=== PATIENT | male | born 1975 | race Caucasian/White ===

== ENCOUNTER 2018-03-15 15:15 | Outpatient (RCR) | payer OTHER, SELFPAY ==
--- NOTE | 2018-02-15 17:55 | PT.OPPOC ---
Current Diagnoses Pain in right shoulder (03/15/18) Provider Visit Care Team Role Provider Type Jihan Beasley DO Attending Provider Physician Primary Care Provider Specialty: [facility] Address: [address] [place] [address], [id number] Email: [email or web address] Plan Of Care PT-OP-T Assessment and Plan Start: 02/15/18 17:14 Freq: Status: Active Protocol: Document 02/15/18 15:15 HH (Rec: 02/15/18 17:54 HH [email or web address]) Physical Therapy Assessment Rehab Potential Rehabilitation Potential Excellent Evaluation Complexity Number of Personal Factors/Comorbidities 0 Impairments Impairments Functional Activities Pain Goals 3 Impairment Activities Center Line Cutter Operator Goal (LTG) Able to throw a football in pain free LTG Duration 4 weeks 2 Impairment strength Short Term Goal (STG) to increase R GH overall strength by 1/2 MMT grade STG Duration 2 weeks Center Line Cutter Operator Goal (LTG) to increase R GH overall strength by 1/2 MMT grade LTG Duration 4 weeks 1 Impairment pain/ ADLs Short Term Goal (STG) Reduce pain by 2 points with cocking motion/ reaching behind his midback STG Duration 2 weeks Center Line Cutter Operator Goal (LTG) pain free with cocking motion/ reaching behind his midback LTG Duration 4 weeks Assessment Summary Assessment Pt is a 42yo pleasant male who injured his R shoulder by throwing a football repetitively in early this October. Pt reports his shoulder pain (superior posterior) will reproduce with the same cocking and deceleration motion everytime. Which limits his ADLs such as reaching his midback during showering. Upon assessment, pt presents intact active/ passive GH ROM R=L with no pain. There's no significant strength deficit noted as well . However, Pain is only reproduced during resisted IR, empty can test, resisted shoulder abduction and resisted end range external rotation with R GH at 90 abduction (cocking position). Suspect R RTC tendonopathy due to mechanism of injury. HEP is given including wall push with R GH IR; active ER from neutral; quadruped scap retraction. Pt will benefit from skilled PT to address proper neuro-muscular activation during simulated overhead motion (cocking), along with progressive strengthening for his R RTC. Physical Therapy Plan Frequency and Duration Frequency of Treatment 1x/Week Duration of Treatment 4 weeks Plan of Care Start Date 02/15/18 Plan of Care End Date 03/18/17 Therapeutic Interventions Therapeutic Interventions Coordination Training Home Exercise Program Manual Therapy Neuromuscular Re-education Soft Tissue Mobilization Therapeutic Exercises Next Visit Focus/Plan Next Note Type Treatment Note Next Visit Plan Check thoracic mobility for cocking motion R GH ER and IR active control with weighted ball / DB R scap strengthening R A/PROM on ER and IR Plan of Care Dates Plan of Care Start Date 02/15/18 Plan of Care End Date 03/18/17 Please Sign and Return: I have reviewed this Plan of Care and certify that the skilled therapy services above are required to meet the patient?s needs. Physician Signature Date Printed Name and Credentials Clinical Instructor Signature Printed Name and Credentials
--- NOTE | 2018-02-15 17:55 | PT.OIE ---
Current Diagnoses Pain in right shoulder (02/15/18) Past Medical History (Last Updated 11/08/17 @ 16:49 by Brenna Stevens) ADHD (attention deficit hyperactivity disorder) (Chronic) Asthma (Chronic 1996) GERD (gastroesophageal reflux disease) (Chronic 2014) Sciatica (Chronic 2005) Chicken pox (Resolved) Past Surgical History (Last Updated 11/08/17 @ 16:47 by Brenna Stevens) Anesthesia (Resolved) History of anterior cruciate ligament surgery (Resolved 1996) History of anterior cruciate ligament surgery (Resolved 2003) Provider Visit Care Team Role Provider Type Jihan Beasley DO Attending Provider Physician Primary Care Provider Specialty: [facility] Address: [address] [place] [address], [facility] Email: [email or web address] Physical Therapy Initial Evaluation PT-OP-A Visit Information Start: 02/15/18 17:14 Freq: Status: Active Protocol: Document 02/15/18 15:15 HH (Rec: 02/15/18 17:54 [email or web address]) Out-Patient Physical Therapy Visit Information Visit Information Visit Type Initial Evaluation Visit Note Pt presents to clinic with the onset of R shoulder pain 3/10 since early October. Visit Start Time 15:15 Visit Stop Time 16:00 Total Visit Minutes 45 Visit Number 1 Number of HAND SHAKER Visits 0 Evaluation Information Evaluation Date 02/15/18 PT-OP-B Current Condition Start: 02/15/18 17:14 Freq: Status: Active Protocol: Document 02/15/18 15:15 HH (Rec: 02/15/18 17:54 [email or web address]) Current Condition History of Current Condition Onset Date Early October Current Complaints R shoulder pain 3/10 History of Current Condition pt states onset of R shoulder pain after repetitively throwing football with his friends on the weekend. Pt then experiences R shoulder pain 3/10 every time he does the cocking motion. Prior Treatments and Tests Pt have not had any MRI and x- ray screenings. 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 Current Functional Impairments (Reported) Functional Limitations- ADL's pt reports reproduced pain by reaching his midback during shower PT-OP-C Subjective Start: 02/15/18 17:14 Freq: Status: Active Protocol: Document 02/15/18 15:15 HH (Rec: 02/15/18 17:54 HH [email or web address]) Patient Questionnaires Quick Dash- Upper Extremity Quick Dash UE Score 18.18 Quick Dash UE Impairment 1 to 19% Impaired (Score 1-19) OP-PT Pain Assessment Location Right Shoulder Pain Location Details superior posterior of R GH Intensity 3 Scale Used Numeric (1 - 10) Description Aching Dull Pulling Frequency Occasional Pain Aggravating Factors Position Other Pain Aggravating Factors cocking position of throwing a ball PT-OP-F Manual Assessment Start: 02/15/18 17:14 Freq: Status: Active Protocol: Document 02/15/18 15:15 HH (Rec: 02/15/18 17:54 HH [email or web address]) Manual Assessments Soft Tissue Assessment Soft Tissue Mobility Assessment tenderness at B upper trap no tenderness noted at RTC PT-OP-K Range of Motion Start: 02/15/18 17:14 Freq: Status: Active Protocol: Document 02/15/18 15:15 HH (Rec: 02/15/18 17:54 HH [email or web address]) Shoulder Goniometric Range of Motion Shoulder Measured in Degrees Left Active Shoulder ROM WFL Yes Testing Position Sitting Flexion 180 Extension 60 Abduction 180 External Rotation at 90 degrees 100 Abduction Internal Rotation 90 Right Active Shoulder ROM WFL Yes Testing Position Sitting Flexion 180 Extension 60 Abduction 180 External Rotation at 90 degrees 100 Abduction Internal Rotation 90 PT-OP-L Special Tests Start: 02/15/18 17:14 Freq: Status: Active Protocol: Document 02/15/18 15:15 HH (Rec: 02/15/18 17:54 HH [email or web address]) Special Tests Shoulder Special Tests Resisted cocking motion from ER to IR Comments pain reproduced resisted scaption at 90 degrees Comments pain reproduced Neer Impingement Test Results -ve Empty Can Test Results +ve Comments pain reproduced PT-OP-M Strength Start: 02/15/18 17:14 Freq: Status: Active Protocol: Document 02/15/18 15:15 HH (Rec: 02/15/18 17:54 HH [email or web address]) Shoulder Strength Shoulder Manual Muscle Testing Left Flexion 5 Normal Extension 5 Normal Abduction (C5) 5 Normal Adduction 5 Normal External Rotation 5 Normal Internal Rotation 5 Normal Comments No strength deficits noted. Right Flexion 5 Normal Extension 5 Normal Abduction (C5) 4 Good Adduction 5 Normal External Rotation 4 Good Internal Rotation 4 Good Comments No significant strength deficits noted. PT-OP-Q Treatments Start: 02/15/18 17:14 Freq: Status: Active Protocol: Document 02/15/18 15:15 (Rec: 02/15/18 17:54 [email or web address]) Therapeutic Exercises Prone Exercises 1 Prone Exercise Name prone scap retraction against gravity Side right Resistance active Reps/Minutes 10 reps Sitting Exercises 2 Sitting Exercise Name Seated R GH IR against wall Side right Resistance isometric resistance Reps/Minutes 10 reps 1 Sitting Exercise Name Seated R GH ER from wall Side right Resistance active Reps/Minutes 10 reps PT-OP-T Assessment and Plan Start: 02/15/18 17:14 Freq: Status: Active Protocol: Document 02/15/18 15:15 (Rec: 02/15/18 17:54 [email or web address]) Physical Therapy Assessment Rehab Potential Rehabilitation Potential Excellent Evaluation Complexity Number of Personal Factors/Comorbidities 0 Impairments Impairments Functional Activities Pain Goals 3 Impairment Activities Jail Goal (LTG) Able to throw a football in pain free LTG Duration 4 weeks 2 Impairment strength Short Term Goal (STG) to increase R GH overall strength by 1/2 MMT grade STG Duration 2 weeks Herb Doctor Goal (LTG) to increase R GH overall strength by 1/2 MMT grade LTG Duration 4 weeks 1 Impairment pain/ ADLs Short Term Goal (STG) Reduce pain by 2 points with cocking motion/ reaching behind his midback STG Duration 2 weeks Herb Doctor Goal (LTG) pain free with cocking motion/ reaching behind his midback LTG Duration 4 weeks Assessment Summary Assessment Pt is a 42yo pleasant male who injured his R shoulder by throwing a football repetitively in early this October. Pt reports his shoulder pain (superior posterior) will reproduce with the same cocking and deceleration motion everytime. Which limits his ADLs such as reaching his midback during showering. Upon assessment, pt presents intact active/ passive GH ROM R=L with no pain. There's no significant strength deficit noted as well . However, Pain is only reproduced during resisted IR, empty can test, resisted shoulder abduction and resisted end range external rotation with R GH at 90 abduction (cocking position). Suspect R RTC tendonopathy due to mechanism of injury. HEP is given including wall push with R GH IR; active ER from neutral; quadruped scap retraction. Pt will benefit from skilled PT to address proper neuro-muscular activation during simulated overhead motion (cocking), along with progressive strengthening for his R RTC. Physical Therapy Plan Frequency and Duration Frequency of Treatment 1x/Week Duration of Treatment 4 weeks Plan of Care Start Date 02/15/18 Plan of Care End Date 03/18/17 Therapeutic Interventions Therapeutic Interventions Coordination Training Home Exercise Program Manual Therapy Neuromuscular Re-education Soft Tissue Mobilization Therapeutic Exercises Next Visit Focus/Plan Next Note Type Treatment Note Next Visit Plan Check thoracic mobility for cocking motion R GH ER and IR active control with weighted ball / DB R scap strengthening R A/PROM on ER and IR
--- NOTE | 2018-03-03 16:47 | PT.OTN ---
Current Diagnoses Pain in right shoulder (03/03/18) Physical Therapy Treatment Note PT-OP-A Visit Information Start: 02/15/18 17:14 Freq: Status: Active Protocol: Document 03/03/18 16:30 [facility] (Rec: 03/03/18 16:47 [facility] [email or web address]) Out-Patient Physical Therapy Visit Information Visit Information Visit Type Treatment Note Visit Start Time 15:25 Visit Stop Time 16:10 Total Visit Minutes 45 Visit Number 2 Number of COLOR SPECIALIST Visits 0 Evaluation Information Evaluation Date 02/15/18 PT-OP-B Current Condition Start: 02/15/18 17:14 Freq: Status: Active Protocol: Document 02/15/18 15:15 HH (Rec: 02/15/18 17:54 HH [email or web address]) Current Condition History of Current Condition Onset Date Early October Current Complaints R shoulder pain 3/10 History of Current Condition pt states onset of R shoulder pain after repetitively throwing football with his friends on the weekend. Pt then experiences R shoulder pain 3/10 every time he does the cocking motion. Prior Treatments and Tests Pt have not had any MRI and x- ray screenings. 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 Current Functional Impairments (Reported) Functional Limitations- ADL's pt reports reproduced pain by reaching his midback during shower PT-OP-C Subjective Start: 02/15/18 17:14 Freq: Status: Active Protocol: Document 03/03/18 16:30 [facility] (Rec: 03/03/18 16:47 [facility] [email or web address]) OP-PT Subjective Patient Comments Patient Comments pt notes he has been working on his shoulder ROM at home, pain is decreased overall from when it began this past summer. He would like to get to the point where he can throw a football and baseball again PT-OP-F Manual Assessment Start: 02/15/18 17:14 Freq: Status: Active Protocol: Document 02/15/18 15:15 HH (Rec: 02/15/18 17:54 HH [email or web address]) Manual Assessments Soft Tissue Assessment Soft Tissue Mobility Assessment tenderness at B upper trap no tenderness noted at RTC PT-OP-K Range of Motion Start: 02/15/18 17:14 Freq: Status: Active Protocol: Document 02/15/18 15:15 HH (Rec: 02/15/18 17:54 HH [email or web address]) Shoulder Goniometric Range of Motion Shoulder Measured in Degrees Left Active Shoulder ROM WFL Yes Testing Position Sitting Flexion 180 Extension 60 Abduction 180 External Rotation at 90 degrees 100 Abduction Internal Rotation 90 Right Active Shoulder ROM WFL Yes Testing Position Sitting Flexion 180 Extension 60 Abduction 180 External Rotation at 90 degrees 100 Abduction Internal Rotation 90 PT-OP-L Special Tests Start: 02/15/18 17:14 Freq: Status: Active Protocol: Document 02/15/18 15:15 HH (Rec: 02/15/18 17:54 HH [email or web address]) Special Tests Shoulder Special Tests Resisted cocking motion from ER to IR Comments pain reproduced resisted scaption at 90 degrees Comments pain reproduced Neer Impingement Test Results -ve Empty Can Test Results +ve Comments pain reproduced PT-OP-M Strength Start: 02/15/18 17:14 Freq: Status: Active Protocol: Document 02/15/18 15:15 HH (Rec: 02/15/18 17:54 [email or web address]) Shoulder Strength Shoulder Manual Muscle Testing Left Flexion 5 Normal Extension 5 Normal Abduction (C5) 5 Normal Adduction 5 Normal External Rotation 5 Normal Internal Rotation 5 Normal Comments No strength deficits noted. Right Flexion 5 Normal Extension 5 Normal Abduction (C5) 4 Good Adduction 5 Normal External Rotation 4 Good Internal Rotation 4 Good Comments No significant strength deficits noted. PT-OP-Q Treatments Start: 02/15/18 17:14 Freq: Status: Active Protocol: Document 03/03/18 16:30 [facility] (Rec: 03/03/18 16:47 [facility] [email or web address]) Therapeutic Exercises Supine Exercises 1 Supine Exercise Name foam roll stretch Comments pectoralis stretch Prone Exercises 2 Prone Exercise Name prone horizontal abduction Equipment Used 2# Reps/Minutes 2 x 10 reps 1 Prone Exercise Name prone scap retraction against gravity Side right Resistance active Reps/Minutes 10 reps Sidelying Exercises 2 Sidelying Exercise Name sleeper stretch Comments hold 30 sec-1 min 1 Sidelying Exercise Name sidelying shoulder ER Resistance 5# Reps/Minutes 3x10 reps Standing Exercises 3 Standing Exercise Name D1 PNF rotation Reps/Minutes level 2 theraband 2 Standing Exercise Name standing shoulder ER at 90 deg abduction Equipment Used level 2 theraband Reps/Minutes 3 x 10 1 Standing Exercise Name standing shoulder ER with theraband Equipment Used level 2 Reps/Minutes 3x10 Comments elbow at side Manual Therapy Treatment Joint Mobilizations 1 Joint posterior capsule mobilization Self-Care/Home Management Treatment Education Patient Education Body Mechanics Home Exercise Program Joint Protection Pain Management Other Education ice massage right shoulder following exercise PT-OP-T Assessment and Plan Start: 02/15/18 17:14 Freq: Status: Active Protocol: Document 03/03/18 16:30 [facility] (Rec: 03/03/18 16:47 [facility] [email or web address]) Physical Therapy Assessment Assessment Summary Assessment Harshad is demonstrating improved shoulder ROM from his initial visit. He has pain at end range shoulder flexion and is still limited in IR behind his back. I progressed his Rotator cuff exercises today and he tolerated this well. He has no further visits scheduled but we talked today about adding at least one additional visit to review all his established exercises . Physical Therapy Plan Frequency and Duration Frequency of Treatment 1x/Week Duration of Treatment 4 weeks Plan of Care Start Date 02/15/18 Plan of Care End Date 03/18/17 Therapeutic Interventions Therapeutic Interventions Coordination Training Home Exercise Program Manual Therapy Neuromuscular Re-education Soft Tissue Mobilization Therapeutic Exercises Next Visit Focus/Plan Next Note Type Treatment Note Next Visit Plan review ER/IR active control exercises and HEP
--- NOTE | 2018-03-23 11:09 | PT.OTN ---
Current Diagnoses Pain in right shoulder (03/15/18) Physical Therapy Treatment Note PT-OP-A Visit Information Start: 02/15/18 17:14 Freq: Status: Active Protocol: Document 03/15/18 15:15 [facility] (Rec: 03/23/18 11:09 [facility] [email or web address]) Out-Patient Physical Therapy Visit Information Visit Information Visit Type Treatment Note Visit Start Time 15:25 Visit Stop Time 16:00 Total Visit Minutes 35 Visit Number 3 Number of INSPECTOR PRODUCTION PLASTIC PARTS Visits 0 PT-OP-B Current Condition Start: 02/15/18 17:14 Freq: Status: Active Protocol: Document 02/15/18 15:15 HH (Rec: 02/15/18 17:54 HH [email or web address]) Current Condition History of Current Condition Onset Date Early October Current Complaints R shoulder pain 3/10 History of Current Condition pt states onset of R shoulder pain after repetitively throwing football with his friends on the weekend. Pt then experiences R shoulder pain 3/10 every time he does the cocking motion. Prior Treatments and Tests Pt have not had any MRI and x- ray screenings. 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 Current Functional Impairments (Reported) Functional Limitations- ADL's pt reports reproduced pain by reaching his midback during shower PT-OP-C Subjective Start: 02/15/18 17:14 Freq: Status: Active Protocol: Document 03/15/18 15:15 [facility] (Rec: 03/23/18 11:09 [facility] [email or web address]) OP-PT Subjective Patient Comments Patient Comments Doing well with no complaints of pain in the shoulder and feels like ROM is improved PT-OP-F Manual Assessment Start: 02/15/18 17:14 Freq: Status: Active Protocol: Document 02/15/18 15:15 HH (Rec: 02/15/18 17:54 HH [email or web address]) Manual Assessments Soft Tissue Assessment Soft Tissue Mobility Assessment tenderness at B upper trap no tenderness noted at RTC PT-OP-K Range of Motion Start: 02/15/18 17:14 Freq: Status: Active Protocol: Document 02/15/18 15:15 HH (Rec: 02/15/18 17:54 HH [email or web address]) Shoulder Goniometric Range of Motion Shoulder Measured in Degrees Left Active Shoulder ROM WFL Yes Testing Position Sitting Flexion 180 Extension 60 Abduction 180 External Rotation at 90 degrees 100 Abduction Internal Rotation 90 Right Active Shoulder ROM WFL Yes Testing Position Sitting Flexion 180 Extension 60 Abduction 180 External Rotation at 90 degrees 100 Abduction Internal Rotation 90 PT-OP-L Special Tests Start: 02/15/18 17:14 Freq: Status: Active Protocol: Document 02/15/18 15:15 HH (Rec: 02/15/18 17:54 HH [email or web address]) Special Tests Shoulder Special Tests Resisted cocking motion from ER to IR Comments pain reproduced resisted scaption at 90 degrees Comments pain reproduced Neer Impingement Test Results -ve Empty Can Test Results +ve Comments pain reproduced PT-OP-M Strength Start: 02/15/18 17:14 Freq: Status: Active Protocol: Document 02/15/18 15:15 HH (Rec: 02/15/18 17:54 HH [email or web address]) Shoulder Strength Shoulder Manual Muscle Testing Left Flexion 5 Normal Extension 5 Normal Abduction (C5) 5 Normal Adduction 5 Normal External Rotation 5 Normal Internal Rotation 5 Normal Comments No strength deficits noted. Right Flexion 5 Normal Extension 5 Normal Abduction (C5) 4 Good Adduction 5 Normal External Rotation 4 Good Internal Rotation 4 Good Comments No significant strength deficits noted. PT-OP-Q Treatments Start: 02/15/18 17:14 Freq: Status: Active Protocol: Document 03/15/18 15:15 [facility] (Rec: 03/23/18 11:09 [facility] [email or web address]) Therapeutic Exercises Supine Exercises 1 Supine Exercise Name foam roll stretch Comments pectoralis stretch Prone Exercises 2 Prone Exercise Name prone horizontal abduction Equipment Used 2# Reps/Minutes 2 x 10 reps 1 Prone Exercise Name prone scap retraction against gravity Side right Resistance active Reps/Minutes 10 reps Sidelying Exercises 2 Sidelying Exercise Name sleeper stretch Comments hold 30 sec-1 min 1 Sidelying Exercise Name sidelying shoulder ER Resistance 5# Reps/Minutes 3x10 reps Standing Exercises 3 Standing Exercise Name D1 PNF rotation Reps/Minutes level 2 theraband 2 Standing Exercise Name standing shoulder ER at 90 deg abduction Equipment Used level 2 theraband Reps/Minutes 3 x 10 1 Standing Exercise Name standing shoulder ER with theraband Equipment Used level 2 Reps/Minutes 3x10 Comments elbow at side PT-OP-T Assessment and Plan Start: 02/15/18 17:14 Freq: Status: Active Protocol: Document 03/15/18 15:15 [facility] (Rec: 03/23/18 11:09 [facility] [email or web address]) Physical Therapy Assessment Progress Towards Goals Progress Towards Goals Goals Met Assessment Summary Assessment mansi is doing well with his HEP. He is not complaining of any pain at this time and ROM is much improved. He feels he can work on his own at this time and will be discharged from PT. Physical Therapy Plan Discharge Physical Therapy Discharge Reasons Goals Met Discharge Comments Pt is independent with HEP
== END 2018-08-26 11:21 | disposition home or self-care (01) ==
LOC: PHYS 15:15
PROVIDERS: PCP Family Medicine; Visit Provider Family Medicine
DX: M25.511 Pain in right shoulder (principal)
CPT/HCPCS: 97110; 97112; 97161; 97535

== ENCOUNTER 2018-09-28 07:46 | Day surgery (SDC) | payer OTHER, SELFPAY ==
--- NOTE | 2018-09-28 | PATH_ITS ---
[facility] Accession Number: [id number] . 01 Material submitted: . colon - ASCENDING COLON POLYP . 02 Diagnosis: Biopsy, Ascending Colon Polyp: Sessile serrated adenoma. [facility]/09/29/2018 . 02 Electronically signed: . Lucio Asif MD, Pathologist NPI- [id number] . 01 Gross description: . ASCENDING COLON POLYP: Received in formalin is 1 fragment(s) of calderon, soft tissue measuring 0.4 x 0.3 x 0.2 cm which is entirely submitted and submitted entirely in 1 cassette(s) /DMC /DMC . 02 Pathologist provided ICD-10: D12.2 . 02 CPT . 328737 Performed at: [address] [facility] [address] [id number] MD Cruz Cisneros MD Phone: [phone] Performed at: 02 [facility] [address] [place], [place] [id number] MD Debbie Sunshine MD Phone: [phone]
[2018-09-28] MEDS: SODIUM CHLORIDE 0.9% 1,000 ML 50 ML IV (07:57)
[2018-09-28 08:07] VITALS: BP 122/73; PULSE 57; RESP 16; TEMP 36.3; O2SAT 100; BMI 27.2
--- NOTE | 2018-09-28 08:36 | PM.HP.1 ---
History of Present Illness Date Patient Seen: 09/28/18 Time Patient Seen: 08:36 Chief complaint: [id number] Narrative: Family history of colon polyps Patient History Medical History (Updated 11/09/17 @ 15:28 by Alex Gastelum MD) ADHD (attention deficit hyperactivity disorder) (Chronic) Asthma (Chronic 1996) GERD (gastroesophageal reflux disease) (Chronic 2014) Sciatica (Chronic 2005) Chicken pox (Resolved) Surgical History (Updated 11/08/17 @ 16:47 by Brenna Stevens) Anesthesia (Resolved) History of anterior cruciate ligament surgery (Resolved 1996) History of anterior cruciate ligament surgery (Resolved 2003) Family History (Updated 11/08/17 @ 16:52 by Brenna Stevens) Father Asthma Dementia Brain cancer Grandfather No problems noted. Grandmother Cancer Mother Arthritis Breast cancer Grandfather Stroke Grandmother Stroke Sister No problems noted. Sister No problems noted. Social History household members: spouse Smoking Status: Never smoker alcohol intake: current substance use type: does not use Family & Social History Family History (Updated 11/08/17 @ 16:52 by Brenna Stevens) Father Asthma Dementia Brain cancer Grandfather No problems noted. Grandmother Cancer Mother Arthritis Breast cancer Grandfather Stroke Grandmother Stroke Sister No problems noted. Sister No problems noted. Social History: household members spouse Tobacco & Substance use: Smoking Status Never smoker alcohol intake current Meds Home Medications Medication Instructions Recorded Confirmed Type No Known Home Medications 09/28/18 09/28/18 History Allergies Allergy/AdvReac Type Severity Reaction Status Date / Time SULFA Allergy Mild RASH Uncoded 09/28/18 07:57 Exam Vital Signs (past 8 hours): - 09/28/18 08:07 Temperature 97.4 F L Pulse Rate 57 L Respiratory Rate 16 Blood Pressure 122/73 Pulse Oximetry 100 Oxygen Delivery Method Room Air Narrative Exam Narrative: Oropharynx free of lesions Chest clear to auscultation percussion Cardiac exam reveals no S3 or murmur Assessment & Plan Assessment & Plan narrative: Family history of adenomatous polyps in both a younger brother and sister. Need for 1st screening colonoscopy
--- NOTE | 2018-09-28 08:37 | PM.OP.ENDO ---
Operative Date/Time/Diagnoses Date of procedure: 09/28/18 Time of procedure: 08:37 Pre-op diagnosis: See indications and findings Procedure & Clinicians Study performed: Colonoscopy Same procedure as scheduled: Yes Indications: Family history of adenomatous colon polyps Surgeon: Regina Trores Procedure Notes Procedure in detail: After informed consent was obtained the patient was placed in left lateral decubitus position. The video colonoscope was introduced the rectum slowly advanced to the cecum. On slow withdrawal mucosa was carefully examined. The scope was removed. The patient tolerated procedure well. Preparation was good. Blood loss none Complications none Sedation Total sedation time 22 minutes Versed 8 mg fentanyl 150 micro g IV titration Findings 1. 4 mm polyp in the ascending colon Jumbo biopsy removed completely 2. Otherwise negative colonoscopy to cecum Patient will need follow-up colonoscopy in 3-5 years regardless of findings on biopsy given strong family history.
[2018-09-28 09:43] VITALS: BP 110/76; PULSE 58; RESP 12; TEMP 36.3; O2SAT 92
[2018-09-28 09:48] VITALS: BP 106/72; PULSE 55; RESP 13; O2SAT 94
[2018-09-28 09:52] VITALS: BP 107/75; PULSE 53; RESP 14; O2SAT 98
[2018-09-28 10:00] VITALS: BP 127/86; PULSE 66; RESP 17; TEMP 36.8; O2SAT 98
[2018-09-28 10:04] VITALS: BP 110/72; PULSE 68; RESP 17; TEMP 36.9; O2SAT 98
== END 2018-09-28 10:17 | disposition home or self-care (01) ==
PROVIDERS: PCP Family Medicine; Visit Provider Internal Medicine Gastroenterology
PROC: 0DJD8ZZ Inspection of Lower Intestinal Tract, Via Natural or Artificial Opening Endoscopic (ICD-10-PCS; CPT 45378; principal; 2018-09-28 09:00)
DX: Z12.11 Encounter for screening for malignant neoplasm of colon (principal); Z83.71 Family history of colonic polyps; D12.2 Benign neoplasm of ascending colon
CPT/HCPCS: 45380

== ENCOUNTER → 2022-04-15 07:19 | Outpatient (CLI) | payer OTHER, SELFPAY ==
[2022-04-15 09:27] LABS: Influenza A - CEPHEID Flu A NEGATIVE (NEGATIVE); Influenza B - CEPHEID Flu B NEGATIVE (NEGATIVE); Respiratory Syncytial Virus Negative (Negative)
[2022-04-15 09:31] LABS: COVID-19 CEPHEID 4-PLEX PCR POSITIVE (Negative)
== END ==
PROVIDERS: PCP Family Medicine; Visit Provider Nurse Practitioner Family
DX: U07.1 COVID-19 (principal); R05.1 Acute cough; Z20.822 Contact with and (suspected) exposure to COVID-19
CPT/HCPCS: 0241U

== ENCOUNTER 2022-04-16 15:59 | Emergency (ER) | payer OTHER, SELFPAY ==
[2022-04-16 16:08] VITALS: BP 171/95; PULSE 76; RESP 99; TEMP 36.6; O2SAT 99; BMI 30.8
--- NOTE | 2022-04-16 16:23 | ED.EAR ---
HPI - Ear Problem <Gerard Nog PA-C - Last Filed: 04/16/22 16:30> General Chief complaint: Ear Stated complaint: both ears pain/sinus infection Time Seen by Provider: 04/16/22 16:13 Source: patient Mode of arrival: Family Vehicle History of Present Illness HPI Narrative: This is a 46-year-old male presents to the emergency department due to primarily left-sided ear pain as well as 3 weeks of sinus congestion. COVID positive. Patient states that the ear pain is proximally a 9/10 pain severity causing him to come to the emergency department. Denies any discharge from the ear. Does have a history of ear tubes as a child. Patient was seen at the walk-in clinic yesterday and prescribed a nasal spray for his sinus congestion. Related Data Previous Rx's Medication Instructions Recorded dextroamphetamine-amphetamine 5 mg 5 mg PO DAILY #30 tabs 02/20/19 tablet (Adderall) ipratropium bromide 42 mcg (0.06 2 spray intranasal TID 4 days #15 04/15/22 %) nasal spray mL amoxicillin 875 mg-potassium 1 tab PO BID 7 days #14 tabs 04/16/22 clavulanate 125 mg tablet Allergies Allergy/AdvReac Type Severity Reaction Status Date / Time SULFA Allergy Mild RASH Uncoded 04/16/22 16:12 Review of Systems <CHANELLE Jimenez Last Filed: 04/16/22 16:30> Review of Systems Narrative: GENERAL: Denies chills, fatigue, malaise, fever, sweats. HEENT: Reports sinus congestion as well as left-sided ear pain RESPIRATORY: Denies dyspnea, cough, wheezing, hemoptysis, sputum. CARDIOVASCULAR: Denies chest pain, palpitations, orthopnea, edema, GASTROINTESTINAL: Denies nausea, vomiting, abdominal pain, diarrhea, constipation, melena. : Denies dysuria, frequency, incontinence, hematuria, urinary retention. MUSCULOSKELETAL: denies weakness, joint pain, or bony pain SKIN: Denies rash, skin lesions, or other NEUROLOGIC: Denies weakness, headache, numbness, change in speech, confusion, seizures, incoordination. PSYCHIATRIC: No concerning psychosocial issues. 12 point review of systems is negative except for those stated above Patient History <CHANELLE Jimenez Last Filed: 04/16/22 16:30> Medical History ADHD (attention deficit hyperactivity disorder) Asthma (1996) Chicken pox Family history of colon cancer GERD (gastroesophageal reflux disease) (2014) Sciatica (2005) Well adult exam Surgical History Anesthesia History of anterior cruciate ligament surgery (1996) History of anterior cruciate ligament surgery (2003) Family History Father Asthma Dementia Brain cancer Grandfather No problems noted. Grandmother Cancer Mother Arthritis Breast cancer Grandfather Stroke Grandmother Stroke Sister No problems noted. Sister No problems noted. Social History household members: spouse Smoking Status: Never smoker alcohol intake: current substance use type: does not use Smoking Status: Never smoker alcohol intake frequency: a few times a month Substance Use Type: does not use Exam <Gerard Ngo PA-C - Last Filed: 04/16/22 16:30> Narrative Exam Narrative: GENERAL: Well-developed patient, in mild distress. HEAD: Atraumatic. Normocephalic. EYES: Pupils equal round and reactive. Extraocular motions intact. No scleral icterus. No injection or drainage. ENT: Left TM is diffusely erythematous and edematous. No drainage noted. TM intact. Right TM is also erythematous as well. Nose without bleeding, purulent drainage. Throat without erythema, tonsillar hypertrophy or exudate. Airway patent. NECK: Trachea midline. Non tender EXTREMITIES: No edema or joint tenderness. BACK: Nontender without deformity or crepitance. No flank tenderness. NEURO: AOx3. SKIN: No rash or erythema of visible areas Initial Vital Signs Initial Vital Signs: Vital Signs Temperature 98 F 04/16/22 16:08 Pulse Rate 76 04/16/22 16:08 Respiratory Rate 99 H 04/16/22 16:08 Blood Pressure 171/95 H 04/16/22 16:08 Pulse Oximetry 99 04/16/22 16:08 Oxygen Delivery Method 04/16/22 16:08 <Elenita Maddox DO - Last Filed: 04/17/22 07:17> Initial Vital Signs Initial Vital Signs: Vital Signs Temperature 98 F 04/16/22 16:08 Pulse Rate 76 04/16/22 16:08 Respiratory Rate 99 H 04/16/22 16:08 Blood Pressure 171/95 H 04/16/22 16:08 Pulse Oximetry 99 04/16/22 16:08 Oxygen Delivery Method 04/16/22 16:08 Course <Gerard Ngo PA-C - Last Filed: 04/16/22 16:30> Vital Signs Vital signs: Vital Signs - 8 hr 04/16/22 16:08 Temperature 98 F Pulse Rate 76 Respiratory Rate 99 H Blood Pressure 171/95 H Pulse Oximetry 99 Oxygen Delivery Method Room Air <Elenita Maddox DO - Last Filed: 04/17/22 07:17> Vital Signs Vital signs: Vital Signs - 8 hr 04/16/22 16:08 Temperature 98 F Pulse Rate 76 Respiratory Rate 99 H Blood Pressure 171/95 H Pulse Oximetry 99 Oxygen Delivery Method Room Air Medical Decision Making <Gerard Ngo PA-C - Last Filed: 04/16/22 16:30> MDM Narrative Medical decision making narrative: MDM * differential diagnosis includes but not limited to otitis media, eustachian tube dysfunction, otitis externa, mastoiditis * Prior records reviewed: Patient was seen yesterday at the walk-in clinic and prescribed a nasal steroid for his sinus congestion * My lab interpretation: None obtained * My imgaing interpretation: None obtained * Clinical Decision Rules/Scores evaluated: None * Independent discussions with: None ED Course: Patient presents to the emergency department due to a suspected otitis media based on physical exam. Bilateral TMs erythematous, worse on the left. Oral antibiotics will be prescribed for treat the otitis media. Patient is also COVID positive. Recommended he continue with symptomatic management as well as his nasal steroid. He is also taking Sudafed at home which I advised him to continue. Shared Decision Making: Discussed plan with patient who is agreeable with the plan Social Considerations: None Disposition: Discharged home Discharge Plan Departure Patient Disposition: Home Clinical Impression: Otitis media Instructions: Middle Ear Infection Activity Restrictions/Additional Instructions: Thank you for coming to the [facility] Emergency Department today. It appears that you have an ear infection. Please take antibiotics as prescribed. Please continue taking the Sudafed and nasal spray your prescribed yesterday. I hope you feel better soon. Prescriptions: New amoxicillin-pot clavulanate 875-125 mg tablet 1 tab PO BID 7 Days Qty: 14 0RF No Action dextroamphetamine-amphetamine [Adderall] 5 mg tablet 5 mg PO DAILY Qty: 30 0RF ipratropium bromide 42 mcg (0.06 %) spray,non-aerosol 2 spray intranasal TID 4 Days Qty: 15 0RF Rx Instructions: administer into each nostril Referrals: Jihan Beasley DO [Primary Care Provider] - Stand Alone Forms: Patient Portal/API <Elenita Maddox DO - Last Filed: 04/17/22 07:17> Cosign ED Attending Rebaature Attestation: I was immediately available in the department for consultation. Documentation has been reviewed.
== END 2022-04-16 16:36 | disposition home or self-care (01) ==
PROVIDERS: Emergency Provider Physician Assistant Medical; PCP Family Medicine
DX: H66.93 Otitis media, unspecified, bilateral (principal); U07.1 COVID-19
CPT/HCPCS: 99281

== ENCOUNTER 2022-04-16 20:59 | Emergency (ER) | payer OTHER, SELFPAY ==
[2022-04-16 21:09] VITALS: BP 169/88; PULSE 77; RESP 18; TEMP 37.4; O2SAT 99; BMI 30.8
--- NOTE | 2022-04-16 23:12 | ED_ITS ---
HPI - Ear Problem General Chief complaint: Ear Stated complaint: ER VISIT TODAY/BOTH EARS PAIN/ SINUS INFECTION Time Seen by Provider: 04/16/22 23:12 Source: patient, RN notes reviewed and old records reviewed Mode of arrival: Ambulatory Limitations: no limitations History of Present Illness HPI Narrative: This is a 46-year-old male with ADHD presents with complaint of bilateral ear pain patient was seen earlier in the day diagnosed with otitis media, recent COVID positive and prescribed Augmentin. Patient states he is started Sudafed in the morning he is had 1 dose of Augmentin. He states the pain was getting persistently worse overnight. He states it is actually starting to improve a little bit but he would presented because he could not control his pain. Patient did not take any Tylenol or ibuprofen at home he did take Sudafed he did take his Augmentin. He has had his right eardrum rupture in the past secondary ear infection. He has not noticed any new drainage. He states the pain is a little bit better but not gone. Patient states not taking any other daily medications at the moment, he denies any allergies to drugs. He states that he did get treated for a ruptured eardrum in the past and remembers all the precautions. Related Data Previous Rx's Medication Instructions Recorded dextroamphetamine-amphetamine 5 mg 5 mg PO DAILY #30 tabs 02/20/19 tablet (Adderall) ipratropium bromide 42 mcg (0.06 2 spray intranasal TID 4 days #15 04/15/22 %) nasal spray mL amoxicillin 875 mg-potassium 1 tab PO BID 7 days #14 tabs 04/16/22 clavulanate 125 mg tablet Allergies Allergy/AdvReac Type Severity Reaction Status Date / Time SULFA Allergy Mild RASH Uncoded 04/16/22 16:12 Review of Systems Review of Systems ROS Unobtainable: All systems reviewed & are unremarkable except as noted in HPI and below Patient History Medical History ADHD (attention deficit hyperactivity disorder) Asthma (1996) Chicken pox Family history of colon cancer GERD (gastroesophageal reflux disease) (2014) Sciatica (2005) Well adult exam Surgical History Anesthesia History of anterior cruciate ligament surgery (1996) History of anterior cruciate ligament surgery (2003) Family History Father Asthma Dementia Brain cancer Grandfather No problems noted. Grandmother Cancer Mother Arthritis Breast cancer Grandfather Stroke Grandmother Stroke Sister No problems noted. Sister No problems noted. Social History household members: spouse Smoking Status: Never smoker alcohol intake: current substance use type: does not use Smoking Status: Never smoker alcohol intake frequency: a few times a month Substance Use Type: does not use Exam Narrative Exam Narrative: GEN: well nourished, well appearing male, alert and oriented x 3, patient appears to be in mild distress. HEENT: Atraumatic, pupils are equal round reactive to light, extraocular movements are intact, nares are clear, right TM has bulge slight loss of light reflex and small amount of fluid and erythema centrally, left TM is bulbous with multiple areas of bulge, there is fluid behind the TM is erythematous with loss of light reflex. Throat is clear without any exudates, erythema, tonsillar enlargement or uvular deviation HEART: Regular rate and rhythm without murmur, clicks, rubs. LUNGS:Lungs clear to auscultation, no wheezes, rales, crackles, chest moves symmetrically MSCL: normal gait NEURO:CN 2-12 intact, sensation normal SKIN: No rash, erythema or other skin changes. Initial Vital Signs Initial Vital Signs: Vital Signs Temperature 99.3 F 04/16/22 21:09 Pulse Rate 77 04/16/22 21:09 Respiratory Rate 18 04/16/22 21:09 Blood Pressure 169/88 H 04/16/22 21:09 Pulse Oximetry 99 04/16/22 21:09 Oxygen Delivery Method 04/16/22 21:09 Course Orders Ordered: Discontinued Medications Hydrocodone Bitart/Acetaminophen (Hydrocodone/Acet 5/325 Prepack) 1 bottle MISC SEEINSTR ONE Stop: 04/16/22 23:45 Last Admin: 04/16/22 23:54 Dose: 1 bottle Documented By: COLE Vital Signs Vital signs: Vital Signs - 8 hr 04/16/22 21:09 04/16/22 23:58 Temperature 99.3 F 99 F Pulse Rate 77 82 Respiratory Rate 18 18 Blood Pressure 169/88 H 154/78 H Pulse Oximetry 99 98 Oxygen Delivery Method Room Air Room Air Medical Decision Making MDM Narrative Medical decision making narrative: 46-year-old male presents for complaint of worsening ear pain after being down nose with otitis media earlier today at this facility being prescribed antibiotics and told to continue Sudafed. Patient has not taken anything for pain today. Patient states pain has improved but is still present. Discussed return precautions treatment for his pain we did discuss that he may have ruptured his tympanic membrane and need for follow-up and treatment for that if that occurs. Discharge Plan Departure Patient Disposition: Home Clinical Impression: Otitis media Instructions: DI for Otitis Media (Middle Ear Infection)-Child Activity Restrictions/Additional Instructions: Please follow-up for recheck if your symptoms are not starting to improve or do not resolve. You may take Tylenol up to a 1000 mg every 6 hours and/or ibuprofen up to 600 mg every 6 hours. You can take Gilbert 1-2 tablets every 6 hours. You can take ibuprofen with this medication but do not take Tylenol at the same time. This medication can make you sleepy do not drive, perform hazardous activities or make any major decisions while taking it. This medication will make you constipated please take a stool softener once to twice daily until stools are soft and regular. Please return for fevers, bloody drainage, loss of hearing, persistent vomiting, swelling of the face or neck or other new or concerning changes Prescriptions: No Action dextroamphetamine-amphetamine [Adderall] 5 mg tablet 5 mg PO DAILY Qty: 30 0RF ipratropium bromide 42 mcg (0.06 %) spray,non-aerosol 2 spray intranasal TID 4 Days Qty: 15 0RF Rx Instructions: administer into each nostril amoxicillin-pot clavulanate 875-125 mg tablet 1 tab PO BID 7 Days Qty: 14 0RF Referrals: Jihan Beasley DO [Primary Care Provider] - Stand Alone Forms: Patient Portal/API
[2022-04-16] MEDS: HYDROCODONE/ACET 5/325 PREPACK 1 BOTTLE MISC (23:54)
[2022-04-16 23:58] VITALS: BP 154/78; PULSE 82; RESP 18; TEMP 37.2; O2SAT 98
== END 2022-04-16 23:58 | disposition home or self-care (01) ==
PROVIDERS: Emergency Provider Emergency Medicine; PCP Family Medicine
DX: H66.93 Otitis media, unspecified, bilateral (principal); Z86.16 Personal history of COVID-19; U07.1 COVID-19
CPT/HCPCS: 99281; 99283

== ENCOUNTER → 2023-06-10 17:02 | Outpatient (CLI) | payer OTHER, SELFPAY ==
--- NOTE | 2023-06-10 | DI.MRI.S_ITS ---
PROCEDURE: MR KNEE RT WO CON INDICATIONS: Effusion, right knee TECHNIQUE: Noncontrast sagittal PD fast spin echo and T2 fast spin echo with fat saturation, sagittal 3-D FLASH with fat saturation; coronal T1 spin echo and PD fast spin echo with fat saturation, and axial PD fast spin echo with fat saturation through the knee. COMPARISON: None. FINDINGS: Image quality: Excellent. Menisci: In the medial meniscus, there is complete maceration of the posterior horn and the meniscus body. The lateral meniscus is unremarkable. Cruciate ligaments: Status post ACL reconstruction with intact ACL graft. There is small area of T2 hyperintensity anterior to the ACL, measuring 7 mm, which can be seen the setting of arthrofibrosis (series 12, image 18). The PCL is intact. Medial structures: Grade 1 MCL sprain. Lateral structures: The biceps femoris tendon, fibular collateral ligament, and popliteal tendon and muscle are unremarkable. The iliotibial band is unremarkable. Anterior structures: The quadriceps and patellar tendons appear intact. Patellar alignment is normal. No femoral trochlear dysplasia or ventral trochlear prominence. No edema in the infrapatellar fat pad. Bones and cartilage: Mild chondromalacia in the lateral patella facet. Mild chondral thinning in the medial patella facet. There is mild chondral thinning of the medial trochlea. Cartilage of the lateral trochlea is unremarkable. In the medial compartment. There is full thickness chondral loss in the posterior weight-bearing portion of the femoral condyle, with multi focal subchondral marrow edema. The cartilage of the lateral compartment is unremarkable. Mild subchondral marrow edema in the lateral tibial plateau, nonspecific in the be degenerative. No acute fracture. Joint space: Large knee effusion. No popliteal cyst. Popliteal vasculature is unremarkable. IMPRESSION: 1. Complete maceration of the posterior horn and body of the medial meniscus. 2. Status post ACL reconstruction with intact ACL graft. 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 3. Mild chondrosis of the patellofemoral compartment. Moderate chondrosis of the medial compartment. 4. Large knee effusion. Dictated by: Dorothy Lambert M.D. on 06/10/2023 at 21:54 Approved by: Dorothy Lambert M.D. on 06/10/2023 at 22:04
== END ==
LOC: MRI 17:03
PROVIDERS: PCP Student in an Organized Health Care Education/Training Program; Referring Provider Family Medicine; Visit Provider Family Medicine
DX: S83.241A Other tear of medial meniscus, current injury, right knee, initial encounter (principal); M94.261 Chondromalacia, right knee; M25.461 Effusion, right knee; Z98.890 Other specified postprocedural states
CPT/HCPCS: 73721

== ENCOUNTER → 2023-08-22 15:17 | Outpatient (CLI) | payer OTHER, SELFPAY ==
[2023-08-22 16:26] LABS: Influenza A - CEPHEID Flu A NEGATIVE (NEGATIVE); Influenza B - CEPHEID Flu B NEGATIVE (NEGATIVE); Respiratory Syncytial Virus Negative (Negative)
[2023-08-22 16:54] LABS: COVID-19 CEPHEID 4-PLEX PCR Negative (Negative)
== END ==
PROVIDERS: PCP Student in an Organized Health Care Education/Training Program; Visit Provider Nurse Practitioner Family
DX: R05.9 Cough, unspecified (principal)
CPT/HCPCS: 0241U

== ENCOUNTER → 2023-08-22 15:34 | Outpatient (CLI) | payer OTHER, SELFPAY ==
--- NOTE | 2023-08-22 15:36 | DI.RAD.S_ITS ---
PROCEDURE: XR CHEST 2V INDICATIONS: Chest congestion TECHNIQUE: 2 views of the chest were acquired. COMPARISON: None. FINDINGS: Surgical changes and devices: None. Lungs and pleura: Lungs are clear. No pleural effusions or pneumothorax. Mediastinum: Mediastinal contours are normal. Heart size is normal. Bones and chest wall: No suspicious bony abnormalities. Soft tissues appear unremarkable. IMPRESSION: No acute cardiopulmonary abnormality is seen. Dictated by: Hortensia Keene M.D. on 08/22/2023 at 17:11 Approved by: Hortensia Keene M.D. on 08/22/2023 at 17:11
== END ==
LOC: RAD 15:35
PROVIDERS: PCP Student in an Organized Health Care Education/Training Program; Referring Provider Nurse Practitioner Family; Visit Provider Nurse Practitioner Family
DX: R09.89 Other specified symptoms and signs involving the circulatory and respiratory systems (principal); R05.9 Cough, unspecified
CPT/HCPCS: 0241U; 71046

== ENCOUNTER → 2023-08-25 09:33 | Outpatient (CLI) | payer OTHER, SELFPAY ==
[2023-08-25 10:43] LABS: Add Manual Diff / Slide Review NO; Basophils Absolute Auto 0 /uL (0-100); Basophils Percent Auto 0.4 % (0-2); Eosinophils Absolute Auto 200 /uL (0-450); Eosinophils Percent Auto 2.4 % (2-4); Hematocrit 41.3 % (41-53); Hemoglobin 14.3 g/dL (13.5-17.5); Lymphocytes Absolute Auto 1000 /uL (1100-4500); Lymphocytes Percent Auto 12.3 % (25-40); Mean Corpuscular HGB Conc 34.7 % (30-36); Mean Corpuscular Hemoglobin 30.3 PG (26-34); Mean Corpuscular Volume 87.4 fL (80-100); Monocytes Absolute Auto 700 /uL (0-900); Monocytes Percent Auto 8.7 % (3-14); Neutrophils Absolute Auto 6000 /uL (1500-7000); Neutrophils Percent Auto 76.2 % (50-75); Platelet Count 304 X10^3/uL (150-400); Red Blood Cell Count 4.72 X10^6/uL (4.5-5.9); Red Cell Distribution Width 12.7 % (11.6-14.8); White Blood Cell Count 7.9 X10^3/uL (4.5-11.0)
[2023-08-25 11:23] LABS: Alanine Aminotransferase 20 IU/L (<50); Alkaline Phosphatase 62 U/L (38-126); Aspartate Aminotransferase 22 IU/L (17-59); BUN Creatinine Ratio 16.1 (6-22); Bilirubin Total 0.7 mg/dL (0.2-1.3); Blood Urea Nitrogen 14 mg/dL (9-20); Carbon Dioxide 28 mmol/L (22-32); Chloride 105 mmol/L (98-107); Cholesterol 178 mg/dL (140-199); Estimated Glomerular Filt Rate > 60 mL/min (>60); Glucose 106 mg/dL (70-100); HDL Cholesterol 46 mg/dL (40-60); HEMOLYSIS < 15 (0-50); LDL Cholesterol Calculated 119 mg/dL (<100); Potassium 4.3 mmol/L (3.4-5.1); Sodium 138 mmol/L (137-145); Triglycerides 64 mg/dL (35-150)
[2023-08-25 11:26] LABS: Albumin 4.2 g/dL (3.5-5.0); Albumin Globulin Ratio 1.4 (1.0-2.8); Globulin 2.9 g/dL (1.7-4.1); Total Protein 7.1 g/dL (6.3-8.2)
[2023-08-25 11:54] LABS: TSH w/ Reflex to FT4 1.56 uIU/mL (0.47-4.68)
== END ==
PROVIDERS: PCP Student in an Organized Health Care Education/Training Program; Referring Provider Student in an Organized Health Care Education/Training Program; Visit Provider Student in an Organized Health Care Education/Training Program
DX: Z00.00 Encounter for general adult medical examination without abnormal findings (principal); Z13.6 Encounter for screening for cardiovascular disorders
CPT/HCPCS: 36415; 80053; 80061; 84443; 85025

== ENCOUNTER → 2023-09-01 13:10 | Outpatient (CLI) | payer OTHER, SELFPAY ==
--- NOTE | 2023-09-01 13:13 | DI.RAD.S_ITS ---
PROCEDURE: XR SHOULDER LT MIN 2V INDICATIONS: Shoulder pain TECHNIQUE: Three views of the shoulder were acquired. COMPARISON: None. FINDINGS: Bones: No fractures or dislocations. No suspicious bony lesions. Visualized ribs appear intact. Soft tissues: No suspicious soft tissue calcifications. IMPRESSION: No acute bony abnormality. Dictated by: Andreia Dubois M.D. on 09/01/2023 at 15:55 Approved by: Andreia Dubois M.D. on 09/01/2023 at 15:55
--- NOTE | 2023-09-01 13:13 | DI.RAD.S_ITS ---
PROCEDURE: XR SHOULDER RT MIN 2V INDICATIONS: Shoulder pain TECHNIQUE: Three views of the shoulder were acquired. COMPARISON: None. FINDINGS: Bones: No fractures or dislocations. No suspicious bony lesions. Visualized ribs appear intact. Soft tissues: No suspicious soft tissue calcifications. IMPRESSION: No acute bony abnormality. Dictated by: Andreia Dubois M.D. on 09/01/2023 at 15:56 Approved by: Andreia Dubois M.D. on 09/01/2023 at 15:56
--- NOTE | 2023-09-01 13:13 | DI.RAD.S_ITS ---
PROCEDURE: XR HIP W PEL IF DONE FARHAN MIN 4V INDICATIONS: Bilateral hip pain TECHNIQUE: AP pelvis with lateral view(s) of the bilateral hip(s). COMPARISON: None. FINDINGS: Bones: No fractures or dislocations. Pelvic ring appears intact. No suspicious bony lesions. Soft tissues: The visualized bowel gas pattern is normal. No suspicious soft tissue calcifications. IMPRESSION: No acute bony abnormality. Dictated by: Andreia Dubois M.D. on 09/01/2023 at 15:55 Approved by: Andreia Dubois M.D. on 09/01/2023 at 15:56
[2023-09-01 14:36] LABS: Rheumatoid Factor < 8.6 IU/mL (<12.0)
[2023-09-01 14:58] LABS: Erythrocyte Sedimentation Rate 73 MM/HR (0-15)
== END ==
LOC: LAB 13:12
PROVIDERS: PCP Student in an Organized Health Care Education/Training Program; Referring Provider Student in an Organized Health Care Education/Training Program; Visit Provider Student in an Organized Health Care Education/Training Program
DX: M25.519 Pain in unspecified shoulder (principal); M25.551 Pain in right hip; M25.552 Pain in left hip; M25.511 Pain in right shoulder; M19.019 Primary osteoarthritis, unspecified shoulder; Z82.61 Family history of arthritis
CPT/HCPCS: 36415; 73030; 73522; 85651; 86430

== ENCOUNTER → 2023-09-10 12:32 | Outpatient (CLI) | payer OTHER, SELFPAY | PROVIDERS: PCP Student in an Organized Health Care Education/Training Program; Referring Provider Student in an Organized Health Care Education/Training Program; Visit Provider Student in an Organized Health Care Education/Training Program | DX: M25.50 Pain in unspecified joint (principal) | CPT/HCPCS: 36415; 82784; 83516 ==

== ENCOUNTER 2023-10-07 13:03 | Day surgery (SDC) | payer OTHER, SELFPAY ==
--- NOTE | 2023-10-07 | PATH_ITS ---
[facility] Accession Number: [id number] No. of containers..02 Tissue . 01 Material submitted: . PART A: duodenum - DUODENUM PART B: stomach - ANTRUM . 01 Diagnosis: A. DUODENUM, BIOPSY: Duodenal mucosa with no significant diagnostic abnormality. Negative for active inflammation, features of sprue, dysplasia, or malignancy. - B. GASTRIC, ANTRUM, BIOPSY: Mild chronic inactive gastritis with reactive gastropathy, gastric antral mucosa. Negative for helicobacter organisms on H/E and immunostain sections, see comment. Negative for intestinal metaplasia, dysplasia, or malignancy. [facility] 10/12/2023 1317 Local . 01 Comment: Part B: An immunohistochemical stain was performed to evaluate for Helicobacter organisms and is NEGATIVE. The control stain was adequately reactive. Technical Note: The immunohistochemical stains reported were performed at [facility] ([address], [place] [address]). They were developed and their performance characteristics determined by [employer] They have not been cleared or approved by the U.S. Food and Drug Administration, although such approval is not required for analyte-specific reagents of this type. . 01 Electronically signed: . Michael Monterroso MD, Pathologist NPI- [id number] . 01 Gross description: . A. Received in formalin with two patient identifiers and duodenum, are four calderon soft tissue fragments 0.2 to 0.8 cm in greatest dimension. Submitted in cassette A1. B. Received in formalin with two patient identifiers and antrum, are three calderon soft tissue fragments 0.3 to 0.4 cm in greatest dimension. Submitted in cassette B1. (KB:[id number]) /VICTOR HUGO 10/08/2023 1012 Local . 01 Pathologist provided ICD-10: Z12.11, Z86.010 . 01 CPT . 080737, [id number], M83040 Specimen Comment: A courtesy copy of this report has been sent to [phone] Performed at: [address] [address] [address], [place], [place] [id number] MD Cruz Cisneros MD Phone: [phone]
[2023-10-07 13:23] VITALS: BP 149/82; PULSE 103; RESP 17; TEMP 36.5; O2SAT 99
[2023-10-07] MEDS: LACTATED RINGERS 1,000 ML 42 ML IV (13:32)
--- NOTE | 2023-10-07 13:55 | PM.HP.1 ---
History of Present Illness History of Present Illness Date Patient Seen: 10/07/23 Time Patient Seen: 13:55 Chief complaint: Colonoscopy Narrative: Harshad is a 48-year-old man who presents with a history of colon polyps and arthralgia. He had some concerns he could have celiac disease. [facility] Medical History (Updated 10/07/23 @ 13:56 by Chase Craig MD) Family history of colon cancer Well adult exam GERD (gastroesophageal reflux disease) (2014) Chicken pox ADHD (attention deficit hyperactivity disorder) Asthma (1996) Sciatica (2005) Surgical History Anesthesia History of anterior cruciate ligament surgery (2003) History of anterior cruciate ligament surgery (1996) Family History Father Asthma Dementia Brain cancer Grandfather No problems noted. Grandmother Cancer Mother Arthritis Breast cancer Grandfather Stroke Grandmother Stroke Sister No problems noted. Sister No problems noted. Social History household members: spouse Smoking Status: Never smoker alcohol intake: current substance use type: does not use Meds Home Medications and Allergies Home Medications Medication Instructions Recorded Confirmed Type aspirin 325 mg tablet 325 mg PO Q4H 09/01/23 10/07/23 History ibuprofen 400 mg tablet (IBU) 400 mg PO TID 09/01/23 10/07/23 History oxycodone 5 mg tablet 5 mg PO BID PRN pain #10 tabs 09/03/23 10/07/23 Rx Allergies Allergy/AdvReac Type Severity Reaction Status Date / Time SULFA Allergy Mild RASH Uncoded 10/07/23 13:17 Exam Vital Signs (past 8 hours): - 10/07/23 13:23 Temperature 97.7 F Pulse Rate 103 H Respiratory Rate 17 Blood Pressure 149/82 H Pulse Oximetry 99 Oxygen Delivery Method Room Air Oxygen Delivery Method Room Air Const General: healthy appearing Resp Effort & Inspection: normal respiratory effort Assessment & Plan Assessment and plan (1) Joint pain: Qualifiers: Joint pain location: unspecified Qualified Code(s): M25.50 - Pain in unspecified joint Status: Acute (2) Personal history of colonic polyps: Status: Acute Plan We reviewed the risks and benefits of EGD and colonoscopy and he would like to proceed. Time-Based Coding :: [TOTAL MINUTES] spent with patient and on the chart (including review of chart, obtaining history, exam, reviewing outside data, placing orders, documenting exam and treatment plan, and counseling patient) on [DATE].
--- NOTE | 2023-10-07 14:29 | PM.OP.EC ---
Operative Date/Time/Diagnoses Date of procedure: 10/07/23 Time of procedure: 14:30 Pre-op diagnosis: Arthralgia and history of polyps Post-op diagnosis: same Procedure & Clinicians Study performed: EGD and colonoscopy Same procedure as scheduled: Yes Surgeon: Chase Craig Procedure Notes Procedure in detail: Surgeon: Chase Craig MD Anesthesia: Chari Joe MD Procedure in detail: A timeout was performed. A bite blocked was placed and monitors were attached to the patient. The patient was positioned in the left lateral decubitus position. Sedation was administered. Once the patient was sedated the endoscope was inserted through the bite block and passed through the esophagus and stomach and into the duodenum. The duodenal mucosa appeared normal. We performed random biopsies with cold forceps. We then withdrew the scope into the stomach. There was mild antritis and random biopsies were taken from the antral mucosa with cold forceps. The endoscope was retroflexed and no hiatal hernia was seen.. The endoscope was straightned and withdrawn into the esophagus. No abnormalities were seen. EGD findings: Mild antritis Next we repositioned the patient for a colonoscopy. A digital rectal exam was performed and was normal. The colonoscope was inserted and advanced to the cecum. The appendiceal orifice was identified and photographed. The scope was slowly withdrawn over greater than 6 minutes. No abnormalities were found. The scope was retroflexed in the rectum and no abnormalities were identified. Colonoscopy findings: Normal colon Total procedural EBL: 5 mL Scope withdrawal time: 6 minutes Sedation minutes: 25 minutes Post-procedure Disposition: PACU
[2023-10-07 14:32] VITALS: BP 106/76; PULSE 73; RESP 11; TEMP 36.1; O2SAT 96
[2023-10-07 14:36] VITALS: BP 113/75; PULSE 65; RESP 13; O2SAT 98
[2023-10-07 14:41] VITALS: BP 126/85; PULSE 78; RESP 12; O2SAT 75
[2023-10-07 14:45] VITALS: BP 121/78; PULSE 73; RESP 14; TEMP 36.1; O2SAT 98
== END 2023-10-07 15:00 | disposition home or self-care (01) ==
PROVIDERS: PCP Student in an Organized Health Care Education/Training Program; Referring Provider Surgery; Visit Provider Surgery
PROC: 0DJ08ZZ Inspection of Upper Intestinal Tract, Via Natural or Artificial Opening Endoscopic (ICD-10-PCS; CPT 43235; principal; 2023-10-07 14:00)
PROC: 0DJD8ZZ Inspection of Lower Intestinal Tract, Via Natural or Artificial Opening Endoscopic (ICD-10-PCS; CPT 45378; 2023-10-07 14:00)
DX: Z12.11 Encounter for screening for malignant neoplasm of colon (principal); Z86.010 Personal history of colon polyps; K29.50 Unspecified chronic gastritis without bleeding; K31.9 Disease of stomach and duodenum, unspecified
CPT/HCPCS: 45378; 43239; J2704

== ENCOUNTER 2024-01-10 14:04 | Emergency (ER) | payer OTHER, SELFPAY ==
[2024-01-10] VITALS (10 sets, daily range): BP systolic 143–176; BP diastolic 84–95; PULSE 66–88; RESP 18–23; TEMP 36.9; O2SAT 96–100; BMI 30.8
[2024-01-10 14:33] LABS: Add Manual Diff / Slide Review NO; Basophils Absolute Auto 0 /uL (0-100); Basophils Percent Auto 0.4 % (0-2); Eosinophils Absolute Auto 100 /uL (0-450); Eosinophils Percent Auto 1.4 % (2-4); Hematocrit 42.1 % (41-53); Hemoglobin 14.2 g/dL (13.5-17.5); Lymphocytes Absolute Auto 600 /uL (1100-4500); Lymphocytes Percent Auto 6.7 % (25-40); Mean Corpuscular HGB Conc 33.8 % (30-36); Mean Corpuscular Hemoglobin 29.4 PG (26-34); Monocytes Absolute Auto 700 /uL (0-900); Monocytes Percent Auto 7.5 % (3-14); Neutrophils Absolute Auto 8000 /uL (1500-7000); Platelet Count 293 X10^3/uL (150-400); Red Blood Cell Count 4.84 X10^6/uL (4.5-5.9); Red Cell Distribution Width 16.9 % (11.6-14.8); White Blood Cell Count 9.5 X10^3/uL (4.5-11.0)
[2024-01-10 14:38] LABS: Alanine Aminotransferase 26 IU/L (<50); Albumin 4.4 g/dL (3.5-5.0); Albumin Globulin Ratio 1.4 (1.0-2.8); Alkaline Phosphatase 55 U/L (38-126); Aspartate Aminotransferase 24 IU/L (17-59); BUN Creatinine Ratio 15.2 (6-22); Bilirubin Total 0.6 mg/dL (0.2-1.3); Blood Urea Nitrogen 12 mg/dL (9-20); Calcium 9.5 mg/dL (8.4-10.2); Carbon Dioxide 30 mmol/L (22-32); Chloride 102 mmol/L (98-107); Estimated Glomerular Filt Rate > 60 mL/min (>60); Globulin 3.1 g/dL (1.7-4.1); Glucose 119 mg/dL (70-100); HEMOLYSIS < 15 (0-50); Lipase 60 U/L (23-300); Potassium 3.8 mmol/L (3.4-5.1); Sodium 138 mmol/L (137-145); Total Protein 7.5 g/dL (6.3-8.2)
--- NOTE | 2024-01-10 14:43 | EKG_ITS ---
[address] [address] Test Date: 2024-01-10 Pat Name: Harshad Fox Department: [facility] Room: Gender: Male [employer] Developer: yana : 1975 Requested By: Order Number: [id number] Reading MD: Magnus Vasquez MD Measurements Intervals [place] Rate: 66 P: 55 MD: 148 QRS: 12 QRSD: 98 T: 11 QT: 370 QTc: 387 Interpretive Statements Normal sinus rhythm Cannot rule out Anterior infarct , age undetermined Electronically Signed On 01-11-2024 7:20:05 PST by Magnus Vasquez MD
--- NOTE | 2024-01-10 14:46 | PC.NURSE ---
Pt reports neck pain that just started in addition to his abdominal pain.
--- NOTE | 2024-01-10 15:05 | ED.GENADULT ---
HPI - General Adult General Chief complaint: Abdominal Pain Stated complaint: Stomach pain Time Seen by Provider: 01/10/24 14:26 Source: patient Mode of arrival: Ambulatory History of Present Illness HPI narrative: 48-year-old gentleman with a history of polymyalgia rheumatica with recent rheumatologic consultation diagnosed and ankylosing spondylitis has been on prednisone for joint pain, he has a baseline history of reflux. He complains of increasing distention and discomfort such that unable to find a comfortable position at this point. He notes that he passed some gas this morning has not noticed any since then but does not describe that as unusual for him. As his pain has gotten worse he is now developing pain up into both shoulders which is somewhat suspicious for diaphragm irritation and referred pain. Related Data Home Medications Medication Instructions Recorded Confirmed aspirin 325 mg tablet 325 mg PO Q4H 09/01/23 01/10/24 ibuprofen 400 mg tablet (IBU) 400 mg PO TID 09/01/23 01/10/24 sulfasalazine 500 mg tablet 1,000 mg PO BID 01/10/24 01/10/24 Previous Rx's Medication Instructions Recorded oxycodone 5 mg tablet 5 mg PO BID PRN pain #10 tabs 09/03/23 duloxetine 30 mg capsule,delayed 30 mg PO DAILY #90 caps 10/20/23 release prednisone 10 mg tablet 20 mg (2 x 10 mg) PO DAILY 8 weeks 11/12/23 #90 tabs ondansetron 4 mg disintegrating 4 mg PO Q6H #10 tabs 01/10/24 tablet oxycodone-acetaminophen 5 mg-325 1 tab PO Q6H PRN pain #10 tabs 01/10/24 mg tablet pantoprazole 40 mg tablet,delayed 40 mg PO DAILY #30 tabs 01/10/24 release Allergies Allergy/AdvReac Type Severity Reaction Status Date / Time SULFA Allergy Mild RASH Uncoded 01/10/24 11:27 Review of Systems Review of Systems Narrative: Pertinent positive and negative findings as per HPI Patient History Medical History (Updated 01/10/24 @ 18:32 by Chanel Peng MD) Family history of colon cancer Well adult exam GERD (gastroesophageal reflux disease) (2014) Chicken pox ADHD (attention deficit hyperactivity disorder) Asthma (1996) Sciatica (2005) Surgical History (Updated 11/05/23 @ 17:08 by Arcelia Ruiz MA) [place] teeth removed (08/09/99) Anesthesia History of anterior cruciate ligament surgery (2003) History of anterior cruciate ligament surgery (1996) Family History Father Asthma Dementia Brain cancer Grandfather No problems noted. Grandmother Cancer Mother Arthritis Breast cancer Grandfather Stroke Grandmother Stroke Sister No problems noted. Sister No problems noted. Social History household members: spouse Smoking Status: Never smoker alcohol intake: current substance use type: does not use Smoking Status: Never smoker alcohol intake frequency: a few times a month Substance Use Type: does not use Exam Initial Vital Signs Initial Vital Signs: Vital Signs Pulse Oximetry 98 01/10/24 14:09 General: Healthy appearing, in no acute distress. Able to give a complete and coherent history. Well-nourished well-developed HEENT: Moist mucous membranes, normal sclera with reactive pupils, Respiratory: Lungs are clear to auscultation, no wheezing no rales no rhonchi. Full and symmetrical air movement Cardiac: Regular rate and rhythm no murmurs no bruits Abdomen: Distended, mild tenderness without rebound or guarding Skin: Warm and dry, no rashes Neurologic: Grossly neurologically intact with no obvious asymmetries or abnormalities Extremities: No trauma, well perfused Psych: Cooperative, appropriate insight and affect Course Orders Ordered: ED Orders 01/10/24 14:15 Complete Blood Count AUTO DIFF Stat Comprehensive Metabolic Panel Stat Lipase Stat 01/10/24 14:38 EKG-12 Lead Stat 01/10/24 15:22 CT abdomen pelvis w con Stat Hydromorphone HCl (Hydromorphone 0.5 Mg Inj) 0.5 mg IV Q15MIN PRN PRN Reason: Pain, Last Admin: 01/10/24 15:36 Dose: 0.5 mg Documented By: RB Ondansetron HCl (Ondansetron 4 Mg/2 Ml Inj) 4 mg IV NOW PRN PRN Reason: Nausea And Vomiting Last Admin: 01/10/24 15:36 Dose: 4 mg Documented By: RB Ondansetron HCl (Ondansetron 4 Mg Odt) 4 mg PO NOW PRN PRN Reason: Nausea And Vomiting Discontinued Medications Pantoprazole Sodium (Pantoprazole 40 Mg Vial) 80 mg IV NOW ONE Stop: 01/10/24 15:22 Last Admin: 01/10/24 15:36 Dose: 80 mg Documented By: AARON Vital Signs Vital signs: Vital Signs - 8 hr 01/10/24 14:09 01/10/24 14:10 01/10/24 14:10 Temperature 98.5 F Pulse Rate 88 78 Respiratory Rate 18 Blood Pressure 176/92 H Pulse Oximetry 98 98 98 Oxygen Delivery Method Room Air 01/10/24 14:10 01/10/24 14:30 01/10/24 14:30 Temperature Pulse Rate 69 Respiratory Rate Blood Pressure 176/92 H 156/89 H Pulse Oximetry 97 Oxygen Delivery Method Room Air 01/10/24 15:00 01/10/24 15:00 01/10/24 15:39 Temperature Pulse Rate 72 78 Respiratory Rate 22 Blood Pressure 153/92 H Pulse Oximetry 97 100 Oxygen Delivery Method Room Air 01/10/24 15:40 01/10/24 15:40 01/10/24 16:00 Temperature Pulse Rate 79 Respiratory Rate 23 Blood Pressure 169/95 H 149/85 H Pulse Oximetry 99 Oxygen Delivery Method 01/10/24 16:00 01/10/24 16:30 01/10/24 16:30 Temperature Pulse Rate 69 67 Respiratory Rate 19 20 Blood Pressure 152/85 H Pulse Oximetry 96 96 Oxygen Delivery Method Room Air 01/10/24 17:00 01/10/24 17:00 01/10/24 17:30 Temperature Pulse Rate 66 72 Respiratory Rate 21 21 Blood Pressure 143/84 H Pulse Oximetry 96 96 Oxygen Delivery Method Room Air 01/10/24 17:30 Temperature Pulse Rate Respiratory Rate Blood Pressure 146/84 H Pulse Oximetry Oxygen Delivery Method Medical Decision Making Lab Data 01/10/24 14:15 01/10/24 14:15 Labs: Lab Results 01/10/24 Range/Units 14:15 WBC 9.5 (4.5-11.0) X10^3/uL RBC 4.84 (4.5-5.9) X10^6/uL Hgb 14.2 (13.5-17.5) g/dL Hct 42.1 (41-53) % MCV 87.0 (80-100) fL MCH 29.4 (26-34) PG MCHC 33.8 (30-36) % RDW 16.9 H (11.6-14.8) % Plt Count 293 (150-400) X10^3/uL Neut % (Auto) 84.0 H (50-75) % Lymph % (Auto) 6.7 L (25-40) % [place] % (Auto) 7.5 (3-14) % Eos % (Auto) 1.4 L (2-4) % Baso % (Auto) 0.4 (0-2) % Neut # (Auto) 8000 H (1370-7741) /uL Lymph # (Auto) 600 L (5599-0367) /uL [place] # (Auto) 700 (0-900) /uL Eos # (Auto) 100 (0-450) /uL Baso # (Auto) 0 (0-100) /uL Sodium 138 (137-145) mmol/L Potassium 3.8 (3.4-5.1) mmol/L Chloride 102 (98-107) mmol/L Carbon Dioxide 30 (22-32) mmol/L BUN 12 (9-20) mg/dL Creatinine 0.79 (0.66-1.25) mg/dL Estimated GFR > 60 (>60) mL/min BUN/Creatinine Ratio 15.2 (6-22) Glucose 119 H (70-100) mg/dL Calcium 9.5 (8.4-10.2) mg/dL Total Bilirubin 0.6 (0.2-1.3) mg/dL AST 24 (17-59) IU/L ALT 26 (<50) IU/L Alkaline Phosphatase 55 (38-126) U/L Total Protein 7.5 (6.3-8.2) g/dL Albumin 4.4 (3.5-5.0) g/dL Globulin 3.1 (1.7-4.1) g/dL Albumin/Globulin Ratio 1.4 (1.0-2.8) Lipase 60 (23-300) U/L Imaging Data CT scan - abdomen/pelvis: Radiologist's Impression: ROCEDURE: CT ABDOMEN PELVIS W CON INDICATIONS: abdominal pain TECHNIQUE: After the administration of intravenous contrast, axial sections acquired from the lung bases to the pubic symphysis. Coronal and sagittal reformats were performed. For radiation dose reduction, the following was used: automated exposure control, adjustment of mA and/or kV according to patient size. COMPARISON: None. FINDINGS: Image quality: Diagnostic. Peritoneum: No pneumoperitoneum or ascites. Bones: No acute osseous abnormality. Lower Chest: No acute abnormality. Liver: Normal in size and contour. A few subcentimeter hypodense lesions are present, too small to characterize, likely representing simple cysts (2/20). Gallbladder: No stones or pericholecystic fluid. Dilated appearance of the gallbladder, which may be secondary to fasting. Biliary tree: No intrahepatic or extrahepatic biliary ductal dilatation. Pancreas: Within normal limits. Spleen: Normal in size and contour. Kidneys: No hydronephrosis or obstructive urolithiasis. Sub cm left superior pole hypodense lesion, too small to characterize, likely a simple cyst (3/56). Adrenals: No adrenal nodularity. Bladder: Normal in size and wall thickness. : No acute abnormality. Stomach: Normal in size and contour. Bowel: Normal in diameter without any bowel obstruction. Appendix within normal limits (2/97). Scattered colonic diverticulosis. Lymph Nodes: No retroperitoneal, mesenteric, or inguinal lymphadenopathy. Vascular: No abdominal aortic aneurysm. The visualized arterial vasculature is patent. Soft Tissues: No acute abnormality. IMPRESSION: 1. Dilated appearance of the gallbladder, which may be secondary to fasting. If there is concern for acute cholecystitis, consider right upper quadrant ultrasound. 2. Otherwise, no acute abnormality of the abdomen/pelvis. Dictated by: Indio Hernandez M.D. on 01/10/2024 at 17:43 MDM Narrative Medical decision making narrative: CC: Increasing abdominal pain Complicating co-morbidities: Reflux, on prednisone for ankylosing spondylosis Data collected from: patient Medical records reviewed: Recent primary care note from December 05 and rheumatology consult note from December 27 both discussing joint pain, polymyalgia, newly diagnosed ankylosing spondylitis and prednisone dosing Differential considered: Obstruction, gastroenteritis, pancreatitis, gallbladder disease, gastritis Exam documented above, pertinent findings include: Patient is appropriate, abdomen is somewhat distended and tender without rebound or guarding Lab Test results independently reviewed as above. Pertinent findings: CBC is unremarkable Chemistries are reassuring including liver enzymes Independently reviewed EKG: Sinus rhythm at a rate of 66. No acute ischemic changes Imaging studies independently reviewed: CT scan does not show acute findings nor significant constipation Treatments: IV pantoprazole, Dilaudid, fluids Discussion: 48-year-old gentleman with abdominal bloating and pain. No sign of infection, active bleeding, gallbladder is slightly distended but no acute signs to suggest acute cholecystitis, pancreatitis, bowel obstruction, significant constipation. No appendicitis, diverticulitis. Findings reviewed with patient and his . This point there is no indication for additional imaging further blood work hospitalization. Without a definitive diagnosis but with a reassuring CT scan I do believe a brief course of Percocet to cover his pain for 24-48 hours is reasonable. We did discuss the fact that sometimes symptoms we will simply resolve and sometimes they obviously worsen and point is in the correct direction for a definitive diagnosis. Patient is express understanding. Understand the need to return if worse. Meantime we will ask that he complete a 14 day course of omeprazole, we will be given 30 days that he has some as needed tablets to use after, Re Percocet prescription. He is safe for discharge Discharge Plan Departure Patient Disposition: Home Clinical Impression: Abdominal pain Qualifiers: Abdominal location: upper abdomen, unspecified Qualified Code(s): R10.10 - Upper abdominal pain, unspecified Instructions: DI for Abdominal Pain-Adult Activity Restrictions/Additional Instructions: Thank you for coming in today It did not find a acute finding for your pain. Specifically there was no sign of acute infection, bowel obstruction, bleeding from your stomach, appendicitis, diverticulitis, pancreatitis. Your gallbladder is slightly distended but that happens sometimes when you have not eaten for a number of hours. At this time there is no reason for hospital admission. I do think that small course of Percocet to deal with the pain is that arises is appropriate as we have ruled out the life-threatening abnormalities. Sometimes symptoms we will simply resolve and we do not quite figured out an other times they worsen and it becomes clear the next direction in which we need to investigate. If you find that you are getting worse or develop any new symptoms, please feel free to return to the emergency department for further evaluation. Prescriptions: New oxycodone-acetaminophen 5-325 mg tablet 1 tab PO Q6H PRN (Reason: pain) Qty: 10 0RF pantoprazole 40 mg tablet,delayed release (DR/EC) 40 mg PO DAILY Qty: 30 0RF No Action sulfasalazine 500 mg tablet 1,000 mg PO BID ondansetron 4 mg tablet,disintegrating 4 mg PO Q6H Qty: 10 0RF aspirin 325 mg tablet 325 mg PO Q4H Rx Instructions: while awake ibuprofen [IBU] 400 mg tablet 400 mg PO TID oxycodone 5 mg tablet 5 mg PO BID PRN (Reason: pain) Qty: 10 0RF duloxetine 30 mg capsule,delayed release(DR/EC) 30 mg PO DAILY Qty: 90 2RF prednisone 10 mg tablet 20 mg PO DAILY 56 Days Qty: 90 1RF Referrals: Arin Mcdowell MD [Primary Care Provider] - Stand Alone Forms: Patient Portal/API/Survey, Work Release Note
--- NOTE | 2024-01-10 15:22 | DI.CT.S_ITS ---
PROCEDURE: CT ABDOMEN PELVIS W CON INDICATIONS: abdominal pain TECHNIQUE: After the administration of intravenous contrast, axial sections acquired from the lung bases to the pubic symphysis. Coronal and sagittal reformats were performed. For radiation dose reduction, the following was used: automated exposure control, adjustment of mA and/or kV according to patient size. COMPARISON: None. FINDINGS: Image quality: Diagnostic. Peritoneum: No pneumoperitoneum or ascites. Bones: No acute osseous abnormality. Lower Chest: No acute abnormality. Liver: Normal in size and contour. A few subcentimeter hypodense lesions are present, too small to characterize, likely representing simple cysts (2/20). Gallbladder: No stones or pericholecystic fluid. Dilated appearance of the gallbladder, which may be secondary to fasting. Biliary tree: No intrahepatic or extrahepatic biliary ductal dilatation. Pancreas: Within normal limits. Spleen: Normal in size and contour. Kidneys: No hydronephrosis or obstructive urolithiasis. Sub cm left superior pole hypodense lesion, too small to characterize, likely a simple cyst (3/56). Adrenals: No adrenal nodularity. Bladder: Normal in size and wall thickness. : No acute abnormality. Stomach: Normal in size and contour. Bowel: Normal in diameter without any bowel obstruction. Appendix within normal limits (2/97). Scattered colonic diverticulosis. Lymph Nodes: No retroperitoneal, mesenteric, or inguinal lymphadenopathy. Vascular: No abdominal aortic aneurysm. The visualized arterial vasculature is patent. Soft Tissues: No acute abnormality. IMPRESSION: 1. Dilated appearance of the gallbladder, which may be secondary to fasting. If there is concern for acute cholecystitis, consider right upper quadrant ultrasound. 2. Otherwise, no acute abnormality of the abdomen/pelvis. Dictated by: Indio Hernandez M.D. on 01/10/2024 at 17:43 Approved by: Indio Hernandez M.D. on 01/10/2024 at 17:48
[2024-01-10] MEDS: HYDROMORPHONE 0.5 MG INJ IV ×2 (15:36→18:08)
[2024-01-10] MEDS: PANTOPRAZOLE 40 MG VIAL 80 MG IV (15:36)
[2024-01-10] MEDS: ONDANSETRON 4 MG/2 ML INJ IV (15:36)
[2024-01-10] MEDS: OXYCODONE/APAP 5/325 PREPACK 1 BOTTLE MISC (18:40)
== END 2024-01-10 18:37 | disposition home or self-care (01) ==
PROVIDERS: Emergency Provider Emergency Medicine; PCP Student in an Organized Health Care Education/Training Program
DX: R10.10 Upper abdominal pain, unspecified (principal)
CPT/HCPCS: 36415; 74177; 80053; 83690; 85025; 93005; 93010; 96374; 96375; 96376; 99284; J1171; J2405; J2470; Q9967

== ENCOUNTER 2024-12-05 08:28 | Emergency (ER) | payer OTHER, SELFPAY ==
[2024-12-05] VITALS (20 sets, daily range): BP systolic 122–153; BP diastolic 58–92; PULSE 50–91; RESP 15–20; TEMP 36.8; O2SAT 98–100; BMI 29.7
[2024-12-05 09:13] LABS: Add Manual Diff / Slide Review NO; Hematocrit 42.3 % (41-53); Hemoglobin 14.5 g/dL (13.5-17.5); Lymphocytes Absolute Auto 600 /uL (1100-4500); Mean Corpuscular HGB Conc 34.4 % (30-36); Mean Corpuscular Hemoglobin 30.7 PG (26-34); Mean Corpuscular Volume 89.1 fL (80-100); Platelet Count 270 X10^3/uL (150-400)
[2024-12-05 09:14] LABS: Alanine Aminotransferase 25 IU/L (<50); Albumin 4.7 g/dL (3.5-5.0); Albumin Globulin Ratio 1.5 (1.0-2.8); Alkaline Phosphatase 49 U/L (38-126); Ammonia (NH3) < 9 umol/L (9-30); Blood Urea Nitrogen 15 mg/dL (9-20); Calcium 8.7 mg/dL (8.4-10.2); Carbon Dioxide 26 mmol/L (22-32); Chloride 101 mmol/L (98-107); Estimated Glomerular Filt Rate > 60 mL/min (>60); Globulin 3.2 g/dL (1.7-4.1); Glucose 107 mg/dL (70-99); HEMOLYSIS 38 (0-50); Lipase 48 U/L (23-300); Potassium 4.2 mmol/L (3.4-5.1); Sodium 137 mmol/L (137-145); Total Protein 7.9 g/dL (6.3-8.2)
--- NOTE | 2024-12-05 09:42 | ED.ABDPAIN ---
HPI - Abdominal Pain <Magnus Jones, - Last Filed: 12/05/24 20:39> General Chief Complaint: Abdominal Pain Stated Complaint: Gerd Flare up. x 1 day Time Seen by Provider: 12/05/24 08:53 Source: patient Mode of arrival: Ambulatory History of Present Illness HPI narrative: 49-year-old gentleman history of GERD presents with diffuse abdominal pain after having [place] food, lasagna, for the past 2 days. He has been taking Tums and omeprazole without significant relief of his symptoms. He denies nausea, vomiting, diarrhea, rectal bleeding, hematuria, back pain, fever, chills, body aches. He did take 1 Percocet that did help but the pain came back. He did have a bowel movement yesterday that was normal. Patient reports having colonoscopy in the past or by they remove noncancerous polyps. Other than what is stated 14 point review of system is negative. Related Data Home Medications ?Medication ?Instructions ?Recorded ?Confirmed aspirin 325 mg tablet 325 mg PO Q4H 09/01/23 01/10/24 ibuprofen 400 mg tablet (IBU) 400 mg PO TID 09/01/23 01/10/24 sulfasalazine 500 mg tablet 1,000 mg PO BID 01/10/24 01/10/24 Previous Rx's ?Medication ?Instructions ?Recorded oxycodone 5 mg tablet 5 mg PO BID PRN pain #10 tabs 09/03/23 duloxetine 30 mg capsule,delayed 30 mg PO DAILY #90 caps 10/20/23 release prednisone 10 mg tablet 20 mg (2 x 10 mg) PO DAILY 8 weeks 11/12/23 #90 tabs ondansetron 4 mg disintegrating 4 mg PO Q6H #10 tabs 01/10/24 tablet oxycodone-acetaminophen 5 mg-325 1 tab PO Q6H PRN pain #10 tabs 01/10/24 mg tablet pantoprazole 40 mg tablet,delayed 40 mg PO DAILY #30 tabs 01/13/24 release oxycodone-acetaminophen 5 mg-325 1 tab PO Q6H PRN pain #7 tabs 12/05/24 mg tablet Allergies Allergy/AdvReac Type Severity Reaction Status Date / Time Sulfa (Sulfonamide Allergy Mild Rash Verified 12/05/24 09:46 Antibiotics) Review of Systems <Magnus Jones DO - Last Filed: 12/05/24 20:39> Review of Systems ROS Unobtainable: All systems reviewed & are unremarkable except as noted in HPI and below Patient History <Magnus Jones DO - Last Filed: 12/05/24 20:39> Medical History (Updated 12/05/24 @ 18:02 by Castro Soares MD) Family history of colon cancer GERD (gastroesophageal reflux disease) (2014) Chicken pox ADHD (attention deficit hyperactivity disorder) Asthma (1996) Sciatica (2005) Surgical History (Updated 11/05/23 @ 17:08 by Arcelia Ruiz MA) [place] teeth removed (08/09/99) Anesthesia History of anterior cruciate ligament surgery (2003) History of anterior cruciate ligament surgery (1996) Family History Father Asthma Dementia Brain cancer Grandfather No problems noted. Grandmother Cancer Mother Arthritis Breast cancer Grandfather Stroke Grandmother Stroke Sister No problems noted. Sister No problems noted. Social History household members: spouse Smoking Status: Unknown if ever smoked alcohol intake: current substance use type: does not use Smoking Status: Unknown if ever smoked alcohol intake frequency: a few times a month Exam <Magnus Jones DO - Last Filed: 12/05/24 20:39> Narrative Exam Narrative: GENERAL: [49] year old patient appears stated age. Well-developed patient, in mild distress. HEAD: Atraumatic. Normocephalic. EYES: Pupils equal round and reactive. Extraocular motions intact. No scleral icterus. No injection or drainage. NECK: Trachea midline. Non tender CARDIOVASCULAR: Regular rate and rhythm without murmurs, gallops, or rubs. RESPIRATORY: Clear to auscultation. Breath sounds equal bilaterally. No wheezes, rales, or rhonchi. GASTROINTESTINAL: Abdomen soft, non-tender, nondistended. EXTREMITIES: No edema or joint tenderness. BACK: Nontender without deformity or crepitance. No flank tenderness. NEURO: AOx3. SKIN: No rash or erythema of visible areas Initial Vital Signs Initial Vital Signs: Vital Signs Pulse Rate 67 12/05/24 08:36 Pulse Oximetry 100 12/05/24 08:36 <Castro Soares MD - Last Filed: 12/05/24 23:11> Initial Vital Signs Initial Vital Signs: Vital Signs Pulse Rate 67 12/05/24 08:36 Pulse Oximetry 100 12/05/24 08:36 Course <Magnus Jones DO - Last Filed: 12/05/24 20:39> Orders Ordered: Discontinued Medications Al Hydrox/Mg Hydrox/Simethicone 30 ml/ Lidocaine HCl 15 ml 0 ml PO NOW ONE Stop: 12/05/24 11:38 Last Admin: 12/05/24 11:52 Dose: 45 ml Documented By: KATE Lactated Ringer's (Lactated Ringers) 1,000 mls @ 1,000 mls/hr IV BOLUS ONE Stop: 12/05/24 10:40 Last Infusion: 12/05/24 11:46 Dose: Infused Documented By: Admin: 12/05/24 10:22 Dose: 1,000 mls/hr Documented By: МАРИЯ Ketorolac Tromethamine (Ketorolac 30 Mg/Ml Vial) 15 mg IV NOW ONE Stop: 12/05/24 10:50 Last Admin: 12/05/24 11:10 Dose: 15 mg Documented By: МАРИЯ Morphine Sulfate (Morphine 4 Mg/Ml Inj) 4 mg IV NOW ONE Stop: 12/05/24 11:02 Last Admin: 12/05/24 11:10 Dose: 4 mg Documented By: МАРИЯ Ondansetron HCl (Ondansetron 4 Mg/2 Ml Inj) 4 mg IV NOW PRN PRN Reason: Nausea And Vomiting Ondansetron HCl (Ondansetron 4 Mg Odt) 4 mg PO NOW PRN PRN Reason: Nausea And Vomiting Vital Signs Vital signs: Vital Signs - 8 hr 12/05/24 15:11 12/05/24 15:30 12/05/24 15:30 Pulse Rate 91 H 67 Respiratory Rate 19 17 Blood Pressure 143/73 H Oxygen Delivery Method 12/05/24 16:00 12/05/24 16:00 12/05/24 16:30 Pulse Rate 58 L 61 Respiratory Rate 15 16 Blood Pressure 132/64 Oxygen Delivery Method 12/05/24 16:30 12/05/24 17:00 12/05/24 17:00 Pulse Rate 71 Respiratory Rate 16 Blood Pressure 135/71 147/74 H Oxygen Delivery Method 12/05/24 17:30 12/05/24 17:30 12/05/24 18:00 Pulse Rate 80 Respiratory Rate 16 Blood Pressure 143/92 H 126/58 L Oxygen Delivery Method 12/05/24 18:00 12/05/24 18:10 Pulse Rate 78 Respiratory Rate 17 Blood Pressure Oxygen Delivery Method Room Air <Castro Soares MD - Last Filed: 12/05/24 23:11> Course Course Narrative: 15:45 Patient care transferred to pr that she just ship and Dr. Jones with MRCP pending. This is a 49-year-old female patient with a history of polymyalgia rheumatica, GERD and asthma who presents with epigastric and right upper quadrant pain since yesterday which she thought was an exacerbation of her GERD. Workup to this point reveals total bili 1.8 but CMP and CBC otherwise unremarkable. CT of the abdomen essentially unremarkable, heterogenous appearance of the gallbladder lumen. Right upper quadrant ultrasound reveals cholelithiasis with dilated common bile duct at 8 mm. 17:30 I discussed the patient's case and MRCP results with Dr. Tucker, general surgery who felt the patient could either be admitted for cholecystectomy tomorrow or follow up with him as an outpatient to arrange cholecystectomy or at least discussing cholecystectomy for his cholelithiasis/cholecystitis. Patient is in minimal pain at this point and has reassuring physical exam, vital signs and lab work. 17:45 I discussed options with the patient and he would like to be discharged home manage symptoms by diet and pain medication and follow up with General surgery, Dr. Tucker as above. Orders Ordered: Discontinued Medications Al Hydrox/Mg Hydrox/Simethicone 30 ml/ Lidocaine HCl 15 ml 0 ml PO NOW ONE Stop: 12/05/24 11:38 Last Admin: 12/05/24 11:52 Dose: 45 ml Documented By: KATE Lactated Ringer's (Lactated Ringers) 1,000 mls @ 1,000 mls/hr IV BOLUS ONE Stop: 12/05/24 10:40 Last Infusion: 12/05/24 11:46 Dose: Infused Documented By: Admin: 12/05/24 10:22 Dose: 1,000 mls/hr Documented By: SGF Ketorolac Tromethamine (Ketorolac 30 Mg/Ml Vial) 15 mg IV NOW ONE Stop: 12/05/24 10:50 Last Admin: 12/05/24 11:10 Dose: 15 mg Documented By: МАРИЯ Morphine Sulfate (Morphine 4 Mg/Ml Inj) 4 mg IV NOW ONE Stop: 12/05/24 11:02 Last Admin: 12/05/24 11:10 Dose: 4 mg Documented By: МАРИЯ Ondansetron HCl (Ondansetron 4 Mg/2 Ml Inj) 4 mg IV NOW PRN PRN Reason: Nausea And Vomiting Ondansetron HCl (Ondansetron 4 Mg Odt) 4 mg PO NOW PRN PRN Reason: Nausea And Vomiting Vital Signs Vital signs: Vital Signs - 8 hr 12/05/24 15:11 12/05/24 15:30 12/05/24 15:30 Pulse Rate 91 H 67 Respiratory Rate 19 17 Blood Pressure 143/73 H Oxygen Delivery Method 12/05/24 16:00 12/05/24 16:00 12/05/24 16:30 Pulse Rate 58 L 61 Respiratory Rate 15 16 Blood Pressure 132/64 Oxygen Delivery Method 12/05/24 16:30 12/05/24 17:00 12/05/24 17:00 Pulse Rate 71 Respiratory Rate 16 Blood Pressure 135/71 147/74 H Oxygen Delivery Method 12/05/24 17:30 12/05/24 17:30 12/05/24 18:00 Pulse Rate 80 Respiratory Rate 16 Blood Pressure 143/92 H 126/58 L Oxygen Delivery Method 12/05/24 18:00 12/05/24 18:10 Pulse Rate 78 Respiratory Rate 17 Blood Pressure Oxygen Delivery Method Room Air MDM - Abdominal Pain <Magnus Charles Jones, DO - Last Filed: 12/05/24 20:39> Lab Data 12/05/24 08:57 12/05/24 08:57 Labs: Lab Results 12/05/24 12/05/24 Range/Units 08:57 09:13 WBC 9.9 (4.5-11.0) X10^3/uL RBC 4.74 (4.5-5.9) X10^6/uL Hgb 14.5 (13.5-17.5) g/dL Hct 42.3 (41-53) % MCV 89.1 (80-100) fL MCH 30.7 (26-34) PG MCHC 34.4 (30-36) % RDW 12.7 (11.6-14.8) % Plt Count 270 (150-400) X10^3/uL Neut % (Auto) 87.6 H (50-75) % Lymph % (Auto) 6.4 L (25-40) % Davis % (Auto) 5.5 (3-14) % Eos % (Auto) 0.2 L (2-4) % Baso % (Auto) 0.3 (0-2) % Neut # (Auto) 8700 H (7618-0550) /uL Lymph # (Auto) 600 L (2497-6775) /uL Davis # (Auto) 500 (0-900) /uL Eos # (Auto) 0 (0-450) /uL Baso # (Auto) 0 (0-100) /uL Sodium 137 (137-145) mmol/L Potassium 4.2 (3.4-5.1) mmol/L Chloride 101 (98-107) mmol/L Carbon Dioxide 26 (22-32) mmol/L BUN 15 (9-20) mg/dL Creatinine 0.71 (0.66-1.25) mg/dL Estimated GFR > 60 (>60) mL/min BUN/Creatinine Ratio 21.1 (6-22) Glucose 107 H (70-99) mg/dL Calcium 8.7 (8.4-10.2) mg/dL Total Bilirubin 1.8 H (0.2-1.3) mg/dL AST 31 (17-59) IU/L ALT 25 (<50) IU/L Alkaline Phosphatase 49 (38-126) U/L Ammonia < 9 L (9-30) umol/L Total Protein 7.9 (6.3-8.2) g/dL Albumin 4.7 (3.5-5.0) g/dL Globulin 3.2 (1.7-4.1) g/dL Albumin/Globulin Ratio 1.5 (1.0-2.8) Lipase 48 (23-300) U/L Urine RBC 0-1/hpf (0-5/HPF) Urine WBC 0-1/hpf (0-5/HPF) Ur Squamous Epith Cells 1-5 /hpf (0-5/HPF) Urine Bacteria Occasional (0-1) (None) Urine Mucus 2+ H (Negative) Ur Culture Indicated? Cult not indicated Vol Urine Centrifuged 10ml (spun) Point of care testing: Urine Dip Bedside Urine Glucose Negative Bedside Urine Bilirubin - Negative Bedside Urine Ketone +++ 80 Urine Specific [place] 1.030 Bedside Urine Occult Blood - Negative Bedside Urine pH 6.0 Bedside Urine Protein +/- 15 Bedside Urine Urobilinogen - Negative Bedside Urine Nitrite - Negative Bedside Urine Leukocytes - Negative Esterase Imaging Data CT scan - abdomen/pelvis: Radiologist's Impression: [address] [address] [address] Scan Report Signed Patient: Harshad Fox MR#: [id number] : 1975 Acct:[id number] Age/Sex: 49 / M Date of Service: 12/05/24 Loc: ED Accession Number: [id number] Procedure: CT abdomen pelvis w con Ordering Provider: Magnus Jones D.O. PROCEDURE: CT ABDOMEN PELVIS W CON INDICATIONS: abd pain TECHNIQUE: After the administration of intravenous contrast, axial sections acquired from the lung bases to the pubic symphysis. Coronal and sagittal reformats were performed. For radiation dose reduction, the following was used: automated exposure control, adjustment of mA and/or kV according to patient size. COMPARISON: [facility], CT, CT ABDOMEN PELVIS W CON, 01/10/2024, 15:31. FINDINGS: Image quality: Diagnostic. Lower Chest: No significant findings. ABDOMEN: Liver: No solid mass. Steatosis. Scattered simple hepatic cysts. Gallbladder: Somewhat heterogeneous appearance of the lumen without wall thickening. Biliary ducts: No biliary dilation. Pancreas: No ductal dilation. Spleen: Size is within normal limits. Adrenal Glands: No adrenal nodules. Kidneys and Ureters: No hydronephrosis. Punctate nonobstructing right renal calculus. Scattered simple cysts. Stomach and Bowel: No obstruction. There is thickening of the left colon without distinct inflammatory change. Peritoneum: Minimal dependent intraperitoneal fluid. No free air. Ventral Wall: No significant ventral hernia. Abdominal Nodes: No retroperitoneal or mesenteric adenopathy by size criteria. Vessels: Aorta and inferior vena cava are normal in size. PELVIS: Pelvic Organs: Unremarkable. Bladder: No bladder wall thickening, accounting for underdistention. Pelvic Nodes: No enlarged lymph nodes. Miscellaneous: No inguinal hernias are seen. Bones: No aggressive osseous abnormality. IMPRESSION: Thickening of the left colon without distinct inflammatory change. This is likely secondary to incomplete distention. Somewhat heterogeneous appearance of the gallbladder lumen. Stones cannot be excluded. No wall thickening. US - abdomen: Radiologist's Impression: [address] [address] Ultrasound Report Signed Patient: Harshad Fox MR#: [id number] : 1975 Acct:[id number] Age/Sex: 49 / M Date of Service: 12/05/24 Loc: ED Accession Number: [id number] Procedure: US abdomen limited Ordering Provider: Magnus Jones D.O. PROCEDURE: US ABDOMEN LIMITED INDICATIONS: POSSIBLE GALLSTONES TECHNIQUE: Real-time scanning was performed of the abdominal and retroperitoneal organs, with image documentation. Nine images. COMPARISON: None. FINDINGS: Limited exam. Numerous small gallstones at the gallbladder neck. No ultrasound evidence of gallbladder wall thickening, no pericholecystic fluid, and sonographic Miller sign is noted as negative. Common bile duct measures 8 mm, normally 7 mm or less, cannot exclude choledocholithiasis or other pattern of obstruction. IMPRESSION: Cholelithiasis with dilated common bile duct 8 mm, cannot exclude choledocholithiasis or other pattern of obstruction. If indicated nuclear medicine HIDA scan could be performed. MDM Narrative Medical decision making narrative: All lab work vital signs nurse triage note medication list previous ER visits in all imaging studies reviewed. CT scan showed thickening of the left colon without distinct inflammatory change. This is likely secondary to incomplete distention. Somewhat heterogeneous appearance. Of the gallbladder lumen can not be excluded. No wall thickening. WBC 9.9 lumen 14.5 platelets 270 sodium 137 potassium 4.2 chloride 101 CO2 26 BUN 15 creatinine 0.71 glucose 107 T bili 1.8 ammonia less than 9 lipase 48 urine was negative other than + ketones and specific gravity 1.030. Gallbladder ultrasound shows cholelithiasis with dilated common bile duct 8 mm can not exclude choledocholithiasis or other pattern obstruction. MRCP pending. Patient signed out to Dr. Carter at shift change pending final disposition <Castro Soares MD - Last Filed: 12/05/24 23:11> Medical Records Attestation: I reviewed the patient's medical records. Lab Data Labs: Lab Results 12/05/24 12/05/24 Range/Units 08:57 09:13 WBC 9.9 (4.5-11.0) X10^3/uL RBC 4.74 (4.5-5.9) X10^6/uL Hgb 14.5 (13.5-17.5) g/dL Hct 42.3 (41-53) % MCV 89.1 (80-100) fL MCH 30.7 (26-34) PG MCHC 34.4 (30-36) % RDW 12.7 (11.6-14.8) % Plt Count 270 (150-400) X10^3/uL Neut % (Auto) 87.6 H (50-75) % Lymph % (Auto) 6.4 L (25-40) % Davis % (Auto) 5.5 (3-14) % Eos % (Auto) 0.2 L (2-4) % Baso % (Auto) 0.3 (0-2) % Neut # (Auto) 8700 H (0439-5299) /uL Lymph # (Auto) 600 L (0420-5965) /uL Davis # (Auto) 500 (0-900) /uL Eos # (Auto) 0 (0-450) /uL Baso # (Auto) 0 (0-100) /uL Sodium 137 (137-145) mmol/L Potassium 4.2 (3.4-5.1) mmol/L Chloride 101 (98-107) mmol/L Carbon Dioxide 26 (22-32) mmol/L BUN 15 (9-20) mg/dL Creatinine 0.71 (0.66-1.25) mg/dL Estimated GFR > 60 (>60) mL/min BUN/Creatinine Ratio 21.1 (6-22) Glucose 107 H (70-99) mg/dL Calcium 8.7 (8.4-10.2) mg/dL Total Bilirubin 1.8 H (0.2-1.3) mg/dL AST 31 (17-59) IU/L ALT 25 (<50) IU/L Alkaline Phosphatase 49 (38-126) U/L Ammonia < 9 L (9-30) umol/L Total Protein 7.9 (6.3-8.2) g/dL Albumin 4.7 (3.5-5.0) g/dL Globulin 3.2 (1.7-4.1) g/dL Albumin/Globulin Ratio 1.5 (1.0-2.8) Lipase 48 (23-300) U/L Urine RBC 0-1/hpf (0-5/HPF) Urine WBC 0-1/hpf (0-5/HPF) Ur Squamous Epith Cells 1-5 /hpf (0-5/HPF) Urine Bacteria Occasional (0-1) (None) Urine Mucus 2+ H (Negative) Ur Culture Indicated? Cult not indicated Vol Urine Centrifuged 10ml (spun) Point of care testing: Urine Dip Bedside Urine Glucose Negative Bedside Urine Bilirubin - Negative Bedside Urine Ketone +++ 80 Urine Specific [place] 1.030 Bedside Urine Occult Blood - Negative Bedside Urine pH 6.0 Bedside Urine Protein +/- 15 Bedside Urine Urobilinogen - Negative Bedside Urine Nitrite - Negative Bedside Urine Leukocytes - Negative Esterase Imaging Data MRI abdomen: Radiologist's Impression: IMPRESSION: Cholelithiasis with early imaging features of acute cholecystitis, including gallbladder hydrops and pericholecystic edema about the neck. Common bile duct measures 6 mm on this examination, within normal limits. No definite choledocholithiasis. MDM Narrative Medical decision making narrative: All lab work vital signs nurse triage note medication list previous ER visits in all imaging studies reviewed. CT scan showed thickening of the left colon without distinct inflammatory change. This is likely secondary to incomplete distention. Somewhat heterogeneous appearance. Of the gallbladder lumen can not be excluded. No wall thickening. WBC 9.9 lumen 14.5 platelets 270 sodium 137 potassium 4.2 chloride 101 CO2 26 BUN 15 creatinine 0.71 glucose 107 T bili 1.8 ammonia less than 9 lipase 48 urine was negative other than + ketones and specific gravity 1.030. Gallbladder ultrasound shows cholelithiasis with dilated common bile duct 8 mm can not exclude choledocholithiasis or other pattern obstruction. MRCP pending. Patient signed out to Dr. Carter at shift change pending final disposition. Patient has cholelithiasis and evidence of probable mild cholecystitis. He is feeling better now and would like to manage this outpatient and follow up with General surgery rather than be admitted. He was given instructions on bland low-fat diet and follow up with General surgery, Dr. Tucker Discharge Plan Departure Patient Disposition: Home Clinical Impression: Acute cholecystitis due to biliary calculus Instructions: Gallstones, DI for Biliary Colic, DI for Cholecystitis Activity Restrictions/Additional Instructions: Assessment: Uncomplicated cholecystitis due to cholelithiasis/gallstones Plan: Hydration and supportive care. Follow a low-fat bland diet for now and follow up with General surgery, Dr. Tucker within the next week. [id number] and prescription pain medicine as needed. Return to the ER if worse. Prescriptions: New oxycodone-acetaminophen 5-325 mg tablet 1 tab PO Q6H PRN (Reason: pain) Qty: 7 0RF No Action sulfasalazine 500 mg tablet 1,000 mg PO BID ondansetron 4 mg tablet,disintegrating 4 mg PO Q6H Qty: 10 0RF aspirin 325 mg tablet 325 mg PO Q4H Rx Instructions: while awake ibuprofen [IBU] 400 mg tablet 400 mg PO TID oxycodone 5 mg tablet 5 mg PO BID PRN (Reason: pain) Qty: 10 0RF duloxetine 30 mg capsule,delayed release(DR/EC) 30 mg PO DAILY Qty: 90 2RF prednisone 10 mg tablet 20 mg PO DAILY 56 Days Qty: 90 1RF pantoprazole 40 mg tablet,delayed release (DR/EC) 40 mg PO DAILY Qty: 30 0RF oxycodone-acetaminophen 5-325 mg tablet 1 tab PO Q6H PRN (Reason: pain) Qty: 10 0RF Referrals: Arin Mcdowell MD [Primary Care Provider, Family Practice] Hang Tucker MD [Physician, General Surgery] - 3-5 days Referral Note: Cholelithiasis and mild cholecystitis. Stand Alone Forms: Patient Portal/API
--- NOTE | 2024-12-05 09:49 | DI.CT.S_ITS ---
PROCEDURE: CT ABDOMEN PELVIS W CON INDICATIONS: abd pain TECHNIQUE: After the administration of intravenous contrast, axial sections acquired from the lung bases to the pubic symphysis. Coronal and sagittal reformats were performed. For radiation dose reduction, the following was used: automated exposure control, adjustment of mA and/or kV according to patient size. COMPARISON: [facility], CT, CT ABDOMEN PELVIS W CON, 01/10/2024, 15:31. FINDINGS: Image quality: Diagnostic. Lower Chest: No significant findings. ABDOMEN: Liver: No solid mass. Steatosis. Scattered simple hepatic cysts. Gallbladder: Somewhat heterogeneous appearance of the lumen without wall thickening. Biliary ducts: No biliary dilation. Pancreas: No ductal dilation. Spleen: Size is within normal limits. Adrenal Glands: No adrenal nodules. Kidneys and Ureters: No hydronephrosis. Punctate nonobstructing right renal calculus. Scattered simple cysts. Stomach and Bowel: No obstruction. There is thickening of the left colon without distinct inflammatory change. Peritoneum: Minimal dependent intraperitoneal fluid. No free air. Ventral Wall: No significant ventral hernia. Abdominal Nodes: No retroperitoneal or mesenteric adenopathy by size criteria. Vessels: Aorta and inferior vena cava are normal in size. PELVIS: Pelvic Organs: Unremarkable. Bladder: No bladder wall thickening, accounting for underdistention. Pelvic Nodes: No enlarged lymph nodes. Miscellaneous: No inguinal hernias are seen. Bones: No aggressive osseous abnormality. IMPRESSION: Thickening of the left colon without distinct inflammatory change. This is likely secondary to incomplete distention. Somewhat heterogeneous appearance of the gallbladder lumen. Stones cannot be excluded. No wall thickening. Dictated by: Anna Mcmanus M.D. on 12/05/2024 at 10:47 Approved by: Anna Mcmanus M.D. on 12/05/2024 at 10:53
[2024-12-05] MEDS: LACTATED RINGERS 1,000 ML 1000 ML IV (10:22)
--- NOTE | 2024-12-05 11:02 | DI.US.S_ITS ---
PROCEDURE: US ABDOMEN LIMITED INDICATIONS: POSSIBLE GALLSTONES TECHNIQUE: Real-time scanning was performed of the abdominal and retroperitoneal organs, with image documentation. Nine images. COMPARISON: None. FINDINGS: Limited exam. Numerous small gallstones at the gallbladder neck. No ultrasound evidence of gallbladder wall thickening, no pericholecystic fluid, and sonographic Miller sign is noted as negative. Common bile duct measures 8 mm, normally 7 mm or less, cannot exclude choledocholithiasis or other pattern of obstruction. IMPRESSION: Cholelithiasis with dilated common bile duct 8 mm, cannot exclude choledocholithiasis or other pattern of obstruction. If indicated nuclear medicine HIDA scan could be performed. Dictated by: Dudley Chong M.D. on 12/05/2024 at 11:53 Approved by: Dudley Chong M.D. on 12/05/2024 at 11:57
[2024-12-05] MEDS: KETOROLAC 30 MG/ML VIAL 15 MG IV (11:10)
[2024-12-05] MEDS: MORPHINE 4 MG/ML INJ IV (11:10)
[2024-12-05 11:21] LABS: Culture Indicated Urine Cult Not Indicated
[2024-12-05] MEDS: MAG HYDROX/ALUMINUM/SIMETH SUS 30 ML, LIDOCAINE VISCOUS 2% 15 ML PO (11:52)
--- NOTE | 2024-12-05 12:34 | DI.MRI.S_ITS ---
PROCEDURE: MR ABDOMEN WO/W CON INDICATIONS: CBD dilated r/o choledocholithiasis TECHNIQUE: Coronal HASTE, axial 2D FLASH in- and [id number]; axial breath-hold T2 FSE with fat saturation from the hepatic dome to the iliac crests. Oblique coronal thin- slice and radial thick slab HASTE through the biliary system. Dynamic axial VIBE during administration of contrast. Post-contrast coronal VIBE or 2D FLASH with fat saturation from the hepatic dome to the iliac crests. Optional diffusion weighted imaging and ADC may be performed. COMPARISON: [facility], CT, CT ABDOMEN PELVIS W CON, 12/05/2024, 9:51. FINDINGS: Image quality: Diagnostic. Gallbladder: Cholelithiasis within the neck of the gallbladder. There is mild pericholecystic edema at the gallbladder neck . Gallbladder hydrops. Biliary ducts: Common bile duct measures 6 mm Pancreas: No ductal dilation. OTHER: Lung bases: Unremarkable. Liver: No solid mass. Benign hepatic cysts. Spleen: Size is within normal limits. Adrenal Glands: No adrenal nodules. Kidneys and Ureters: No hydronephrosis. No solid mass. No complex renal cystic lesion which requires follow up. Stomach and Bowel: Normal colonic caliber, without significant wall thickening. Peritoneum: No abnormal intraperitoneal fluid. No free air. Ventral Wall: No hernia. Abdominal Nodes: No retroperitoneal or mesenteric adenopathy by size criteria. Vessels: Aorta and inferior vena cava are normal in size. Bones: No aggressive osseous abnormality. IMPRESSION: Cholelithiasis with early imaging features of acute cholecystitis, including gallbladder hydrops and pericholecystic edema about the neck. Common bile duct measures 6 mm on this examination, within normal limits. No definite choledocholithiasis. Dictated by: Chidi Gonzalez M.D. on 12/05/2024 at 14:23 Approved by: Chidi Gonzalez M.D. on 12/05/2024 at 14:27
== END 2024-12-05 18:11 | disposition home or self-care (01) ==
PROVIDERS: Family Medicine; Emergency Provider Emergency Medicine; PCP Student in an Organized Health Care Education/Training Program
DX: K80.00 Calculus of gallbladder with acute cholecystitis without obstruction (principal)
CPT/HCPCS: 36415; 74177; 74183; 76705; 80053; 81003; 81015; 82140; 83690; 85025; 96361; 96374; 96375; 99284; J1885; J2272; J7120; Q9967

== ENCOUNTER 2025-01-03 09:00 | Day surgery (SDC) | payer OTHER, SELFPAY ==
[2024-12-28 10:28] VITALS: BMI 29.5
[2025-01-03] VITALS (11 sets, daily range): BP systolic 105–144; BP diastolic 53–77; PULSE 56–94; RESP 12–21; TEMP 36.1–36.7; O2SAT 93–99
--- NOTE | 2025-01-03 | DI.RAD.S_ITS ---
PROCEDURE: XR CHOLANGIOGRAM OPERATIVE INDICATIONS: lap santa COMPARISON: [facility], CT, CT ABDOMEN PELVIS W CON, 12/05/2024, 9:51. [facility], US, US ABDOMEN LIMITED, 12/05/2024, 11:19. [facility], MR, MR ABDOMEN WO/W CON, 12/05/2024, 14:13. FINDINGS/IMPRESSION: Fluoroscopic imaging was performed for intraoperative localization. Please correlate with intraoperative findings. Dictated by: Monster Mccray M.D. on 01/03/2025 at 11:58 Approved by: Monster Mccray M.D. on 01/03/2025 at 11:58
--- NOTE | 2025-01-03 | PATH_ITS ---
[facility] Accession Number: [id number] No. of containers..01 Tissue . 01 Material submitted: . gallbladder - GALLBLADDER . 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 No evidence of neoplasm. MRV 01/11/2025 1333 Local . 01 Electronically signed: . Brendan An MD, PhD, Pathologist NPI- [id number] . 01 Gross description: . The specimen is received in formalin, labeled with two patient identifiers and gallbladder, and consists of a 9.5 x 5.5 x 2.5 cm, previously opened gallbladder. The serosal surface is calderon-white, smooth, and glistening with slightly congested serosal vessels. There is a 0.3 x 0.3 cm clipped cystic duct which is inked blue. The cystic duct is obstructed with a 0.8 cm in greatest dimension, yellow, multifaceted, partially crushed gallstone. The gallbladder wall is uniformly thick and fibrotic ranging from 0.1 cm up to 0.2 cm in thickness. The mucosa is white, focally hemorrhagic, and diffusely effaced. No polyps or exophytic lesions are appreciated on the mucosa. Electrical Engineering Manager sections to include cystic duct are submitted in cassette A1. ([id number]) /FRR 01/06/2025 0956 Local . 01 Pathologist provided ICD-10: K80.70 . 01 CPT . 644964 Specimen Comment: A courtesy copy of this report has been sent to [facility]ology Performed at: [address] [facility], [place], [place] [id number] MD Cruz Cisneros MD Phone: [phone]
--- NOTE | 2025-01-03 06:36 | PM.PREOP ---
Pre-operative Note Interval Note History & Physical reviewed/Exam performed by Physician: Yes Changes to H&P: No ASA Class (for procedural sedation): II
[2025-01-03] MEDS: LACTATED RINGERS 1,000 ML 42 ML IV ×2 (09:39→11:53)
[2025-01-03] MEDS: ACETAMINOPHEN 325 MG TABLET 975 MG PO (09:43)
--- NOTE | 2025-01-03 11:21 | SUR.OPER ---
Supine on padded OR bed, head on pillow, arms padded and tucked at sides, legs uncrossed, safety belt at thigh, tape over blanket over lower legs . Surgeon in room at time of positioning. All pressure points padded and protected.
[2025-01-03] MEDS: BUPivacaine 0.25% W/ EPI (PF) 30 ML VIAL 60 ML INJ (11:25)
--- NOTE | 2025-01-03 12:36 | P.OP_ITS ---
Operative Date/Time/Diagnoses Date of procedure: 01/03/25 Time of procedure: 12:37 Pre-op diagnosis: Calculous cholecystitis Post-op diagnosis: same (Hydrops of the gallbladder) Procedure & Clinicians Procedure: Laparoscopic cholecystectomy with cholangiogram Same procedure(s) as scheduled: Yes Indications: 49yo M with calculous cholecystitis Surgeon: Hang Tucker Assisted?: No Anesthesia Type: General Operative Notes Findings: Hydrops of the gallbladder 120cc white bile, required aspiration to aid grasping, normal cholangiogram Closure Type: primary Specimen(s): other (gallbladder) Applied: none Estimated Blood Loss (mL): 20 Blood products transfused: none Procedure in detail: After informed consent and satisfactory general endotracheal anesthesia, the abdomen was prepped and draped in the usual sterile manner.? The patient received appropriate preoperative antibiotics and DVT prophylaxis.? Surgical time-out was performed with all team members in agreement.? The pneumoperitoneum was established under direct vision using the Valerio direct trocar cutdown technique.? An 0 Vicryl [id number]-kf-loetn suture was placed on the umbilical fascia.? The 10 mm 30 degree lens was inserted and no trauma secondary to the trocar insertion was noted.? We performed bilateral laparoscopic TAP blocks using 25 cc of 0.25% Marcaine with epinephrine.? The additional 10 cc of local was used in the skin and subcutaneous tissues at the incision sites for a total of 60 cc of local.? The patient was placed in reverse Trendelenburg, [id number] position.? The gallbladder was tense and distended. This required aspiration to aid grasping. This returned 120cc of white bile consistent with hydrops of the gallbladder. The fundus of the gallbladder was grasped and retracted over the liver.? The infundibulum was retracted laterally for proper exposure of the cystic duct and artery.? Critical view of safety was achieved with 2 distinct structures entering the gallbladder and segment 5 of the liver posterior.? A cholangiogram was performed using a yellow ureteral catheter through the Aguero clamp.? The cystic duct and cystic artery were skeletonized with hook cautery.? A clip was placed on the cystic duct next to the gallblad lelo.? A ductotomy was made with laparoscopic Metzenbaum scissors.? The cholangiogram was normal.? It demonstrated normal caliber right and left hepatic ducts, common hepatic duct and common bile duct without filling defect, mass or stricture.? The contrast flowed unobstructed into the duodenum.? The cholangiogram catheter was removed and the cystic duct was doubly clipped and divided.? The cystic artery was similarly skeletonized, doubly clipped and divided with laparoscopic Metzenbaum scissors.? The adhesions between the gallbladder and the liver were divided with hook cautery.? The gallbladder was placed into an endo-pouch and removed.? The gallbladder bed and clips were inspected and no bleeding or bile drainage was noted.? The trocars were removed and there was no bleeding noted at the trocar sites.? The 0 Vicryl cjyeaq-uh-zulpy suture was tied and there were no palpable fascial defects.? The skin incisions were closed using 4-0 Monocryl in a subcuticular manner.? Dermabond glue was applied as a final dressing.? The estimated blood loss was minimal.? The instrument sponge and needle counts were all correct x2.? The patient tolerated the procedure well and was extubated in the operating room and transported to the recovery area in stable condition. Complications: none Post-operative Condition: stable Disposition: PACU Plan for aftercare: PACU then home
[2025-01-03] MEDS: ONDANSETRON 4 MG/2 ML INJ IV (12:49)
[2025-01-03] MEDS: hydrOXYzine 50 MG/ML INJ 25 MG IM (12:52)
[2025-01-03] MEDS: METOCLOPRAMIDE 10 MG/2 ML INJ IV (12:58)
== END 2025-01-03 14:53 | disposition home or self-care (01) ==
PROVIDERS: PCP Student in an Organized Health Care Education/Training Program; Referring Provider Student in an Organized Health Care Education/Training Program; Visit Provider Surgery
PROC: 0FT44ZZ Resection of Gallbladder, Percutaneous Endoscopic Approach (ICD-10-PCS; CPT 47563; principal; 2025-01-03 10:30)
DX: K82.1 Hydrops of gallbladder (principal); K80.12 Calculus of gallbladder with acute and chronic cholecystitis without obstruction
CPT/HCPCS: 47563; 74300; J0689; J1100; J1171; J1885; J2250; J2405; J2704; J2765; J3010; J3410; J7120; Q9967